=== PATIENT | male | born 1965 | race African-American/Black ===

== ENCOUNTER 2018-11-19 23:58 | Inpatient (IN) | payer MEDICARE, MEDICAID ==
[~2018-11-19] VITALS: Ht 182.9 cm; Wt 85.3 kg
[2018-11-19 23:58] VITALS: BP 126/75
[~2018-11-19 23:58] MED LIST: AMLODIPINE BES2.5 MG ORAL; ASPIRIN81 MG ORAL; BENAZEPRIL HCL20 MG ORAL; BENEZEPRIL PO; CARVEDILOL12.5 MG ORAL; CEPHALEXIN500 MG ORAL; FAMOTIDINE20 MG ORAL; METOPROLOL TART50 MG ORAL; NEPHROVITE1 TAB ORAL; PHENYTOIN SODI100 MG ORAL; PLAVIX75 MG ORAL; RENAGEL800 MG ORAL; SIMVASTATIN40 MG ORAL; VICODIN HP 10-1 EACH ORAL; amlodipine PO; aspirin PO; carvedilol PO; famotidine PO; metoprolol PO; nephro-vite PO; phenytoin PO; plavix PO; renagel PO; simvastatin PO
--- NOTE | 2018-11-19 23:58 | NUR ---
ED Nurse Note: BIAB RA 69 D/T HYPOGLYCEMIA ON SCENE 46. PER EMS PT WAS AT HOME AND [employer] CAME BY FOR A WELLNESS CHECK AND FOUND PT UNRESPONSIVE. PT HAS LEFT UPPER FISTULA. EMS ESTABLISHED LEFT EJ.
[2018-11-20] VITALS (52 sets, daily range): BP systolic 72–126; BP diastolic 27–87
--- NOTE | 2018-11-20 | NUR ---
ED Nurse Note: PT DIALYSIS SCHEDULE, IS T//S
--- NOTE | 2018-11-20 | NUR ---
Elijah haskins in EDM - 11/20/18 at 0033 by [facility] ED Nurse Note: PT DIALYSIS SCHEDULE, IS M/W/F
--- NOTE | 2018-11-20 00:20 | NUR ---
ED Nurse Note: SHRUTHI (SISTER) IS BEDSIDE STATES PT HAD DIALYSIS ON TUESDAY. Addendum: 11/20/18 at 0033 by PDELEON ED Nurse Note: SHRUTHI (SISTER) IS BEDSIDE STATES PT HAD DIALYSIS ON TUESDAY
[2018-11-20 00:25] LABS: HEMOGLOBIN 9.8 G/DL (14.2-18.0); MEAN CORPUSCULAR VOLUME 79 FL (80-99); PLATELET COUNT 97 K/UL (150-450); RED BLOOD COUNT 4.19 M/UL (4.70-6.10); RED CELL DISTRIBUTION WIDTH 20.3 % (11.6-14.8); WHITE BLOOD COUNT 9.8 K/UL (4.8-10.8)
--- NOTE | 2018-11-20 00:31 | NUR ---
ED Nurse Note: PT SENT TO CT
--- NOTE | 2018-11-20 00:31 | NUR ---
Sachi: patient's sister number [phone]
[2018-11-20 00:36] LABS: ANION GAP 19 mmol/L (5-15); BLOOD UREA NITROGEN 60 mg/dL (7-18); CALCIUM 10.8 MG/DL (8.5-10.1); CARBON DIOXIDE 23 MMOL/L (21-32); CHLORIDE 107 MMOL/L (98-107); CREATININE 9.7 MG/DL (0.55-1.30); POTASSIUM 5.5 MMOL/L (3.5-5.1); SODIUM 149 MMOL/L (136-145)
[2018-11-20 00:50] LABS: ALANINE AMINOTRANSFERASE 46 U/L (12-78); ALBUMIN 2.7 G/DL (3.4-5.0); ALBUMIN/GLOBULIN RATIO 0.5 (1.0-2.7); ALKALINE PHOSPHATASE 433 U/L (46-116); ASPARTATE AMINO TRANSFERASE 105 U/L (15-37); BILIRUBIN,TOTAL 5.9 MG/DL (0.2-1.0); CKMB 12.4 NG/ML (0.0-3.6); CREATINE KINASE 403 U/L (26-308)
[2018-11-20] MEDS ORDERED: Dextrose 10% 1,000 ML IV ONE (00:50)
[2018-11-20] MEDS ORDERED: Dextrose 10%/0.9% SOD CHL 1,000 ML IV SCH (01:00)
[2018-11-20 01:05] LABS: BILIRUBIN,DIRECT 3.9 MG/DL (0.0-0.3)
[2018-11-20] MEDS ORDERED: Piperacillin/Tazobactam 3.375 GM in NS 110 ML IVPB ONE (01:15)
[2018-11-20] MEDS ORDERED: Dextrose 10% 1,000 ML IV SCH ×3 (01:15→12:00)
--- NOTE | 2018-11-20 01:20 | Diagnostic Imaging Report ---
Indications: Altered level of consciousness, unresponsive, altered mental status Technique: Spiral acquisitions obtained through the brain. Angled axial and coronal 5 x 5 mm slices were reconstructed. Total dose length product 1414.79 mGycm. CTDI vol(s) 70.38 mGy. Dose reduction achieved using automated exposure control Comparison: None. Findings: Areas of encephalomalacia are seen in the left posterior parietal lobe and in the left anterior parietal lobe, consistent with old infarcts. No acute intracranial hemorrhage or edema, mass effect, nor midline shift. There is periventricular deep white matter low-attenuation, consistent with chronic microvascular ischemic change. Intact calvarium. There is right sphenoid sinus disease. The mastoids are clear. Impression: Chronic and age-related changes, as described Old infarcts on the left. Negative for acute intracranial bleed or mass effect This agrees with the preliminary interpretation provided overnight by [facility] teleradiology service. The CT scanner at [facility] is accredited by the [employer] and the scans are performed using protocols designed to limit radiation exposure to as low as reasonably achievable to attain images of sufficient resolution adequate for diagnostic evaluation.
[2018-11-20 01:32] LABS: INR 1.8 (0.9-1.1)
--- NOTE | 2018-11-20 01:33 | NUR ---
Face sheet, lab results and EKG faxed to [facility] after spoke with for possible transfer.
--- NOTE | 2018-11-20 01:45 | NUR ---
Spoke with Danilo at transfer center at [facility] to follow up if they received faxes, they did not get them, so all labs,EKG and face sheet refaxed as requested to [phone].
--- NOTE | 2018-11-20 01:47 | Emergency Room Report ---
History of Present Illness General Chief Complaint: Altered Mental Status Source: Family Member Present Illness HPI 53-year-old male presents ED for evaluation. Brought in by EMS from home. EMS states that [employer] was called for a wellness check as family was not able to reach the patient. Last well-known was yes afternoon. Was found unresponsive in his apartment. Accu-Chek critically low. Was given glucagon. Patient remains lethargic. Unable to provide any additional history at this time. Family states that patient has history of end-stage renal disease and gets dialysis Tuesday. Is compliant with his dialysis. Are not aware that patient is a diabetic. No reported alcohol or drug use. No other aggravating relieving factors. No other associated symptoms Allergies: Coded Allergies: COCAINE (Verified Allergy, Intermediate, Hives, 10/22/14) Patient History Past Medical History: HTN, CAD, CVA/TIA, renal disease, dialysis Past Surgical History: none Pertinent Family History: none Social History: Denies: smoking, alcohol use, drug use Immunizations: UTD Reviewed Nursing Documentation: PMH: Agreed; PSxH: Agreed Nursing Documentation-PMH Past Medical History: No History, Except For Hx Cardiac Problems: Yes Hx Hypertension: Yes Hx Pacemaker: No - CRF Hx COPD: No - CHF Hx Cancer: No Hx Gastrointestinal Problems: Yes Hx Dialysis: Yes - ,,Tuesday Hx Neurological Problems: Yes Hx Cerebrovascular Accident: Yes - 2008 with Left sided weakness Hx Seizures: Yes - 2008 Hx Dizziness: Yes Hx Weakness: Yes Hx Fatigue: Yes Review of Systems All Other Systems: limited Physical Exam Vital Signs Date Time Temp Pulse Resp B/P (MAP) Pulse Ox O2 Delivery O2 Flow Rate FiO2 11/19/18 23:57 98.2 89 18 147/62 (90) 99 Room Air Sp02 EP Interpretation: reviewed, normal General Appearance: mild distress, lethargic Head: normocephalic Eyes: bilateral eye normal inspection, bilateral eye PERRL ENT: normal ENT inspection Neck: normal inspection Respiratory: chest non-tender, lungs clear, crackles, speaking full sentences, other - midline surgical scar Cardiovascular #1: no edema, tachycardia, other - fistula LUE Gastrointestinal: normal bowel sounds, non tender, soft, non-distended, no guarding, no rebound Rectal: deferred Genitourinary: no CVA tenderness Musculoskeletal: normal inspection Neurologic: other - ams Psychiatric: other - ams Skin: other - see nursing skin notes Lymphatic: no adenopathy Procedures Critical Care Time Critical Care Time i. I feel this is a highly complex case requiring extensive working including EKG/Rhythm strip, Xray/CT/US, Blood/urine lab work, repeat exams while in ED, and administration of strong opiates/narcotics for pain control, admission to hospital or close patient follow up. Total time: 60 min bedside evaluation and treatment excludes procedures (EKG). Reason for critical care: hypoglycemia, tachypnea, NSTEMI Possible complications: hypotension, hypertension, TN, shock, arrhythmias, metabolic acidosis, end organ damage, respiratory failure. Interventions: labs, EKg, CXR, CT head, D50, D10W, Zosyn, consultation with cardiology at [facility]. heparin. Course: patient brought in found down with altered mental status. CT negative. History of end-stage renal disease. BUN/creatinine elevated. Troponin greater than 8. EKG shows sinus tachycardia. Chest x-ray shows congestion. Lactic acid elevated. ABG shows no significant acidosis or hypoxia. Discussed case with interventional cardiology at [facility] candidate for catheterization. Patient will be admitted to ICU here. Started on heparin. Zosyn given. discussed case with brother who is power of vocational adviser. Consultations: nursing staff, EMS, family Performed by: Dr Dewey Tolerated well condition = critical j. because of unstable vital signs this patient had a condition that could potentially threaten life or limb. I feel this is a critical patient who required my full attention while patient was considered critical. Total Critical Care Time excluding procedures was greater than 60 minutes Medical Decision Making Diagnostic Impression: Primary Impression: End stage renal failure on dialysis Additional Impressions: NSTEMI (non-ST elevated myocardial infarction) Severe sepsis Hypoglycemia Encephalopathy ER Course Hospital Course 53-year-old male presents ED with altered mental status. hypoglycemia. Found down for unknown period of time Differential diagnoses include: TN/unstable angina, contusion, muscle strain, PTX, rib fracture Clinical course Placed on stretcher. After initial history and physical repeat Accu-Chek shows continued hypoglycemia. Given D50. Started on D10. labs reviewed- no leukocytosis, Na 149, K 5.5, BUN 60, Cr 9.7, trop 8.507, lactic 6.3 EKG- sinus tachycardia no acute ischemic changes interpreted by me Chest x-ray- cardiomegaly. interstitial congestion CT head - no acute process broad spectrum antibiotics ordered Patient remains tachypneic during ED course. O2 sats okay. ABG ordered which shows no acidosis. PCO2 32.1 Discussed case with interventional cardiology at [facility]. Stated that patient does not meet criteria for emergent cath. Patient will be admitted here to ICU. Heparin bolus and heparin drip started I. I feel this is a highly complex case requiring extensive working including EKG/Rhythm strip, Xray/CT/US, Blood/urine lab work, repeat exams while in ED, and administration of strong opiates/narcotics for pain control, admission to hospital or close patient follow up. Diagnosis - NSTEMI, ESRD on dialysis, severe sepsis, hypoglycemia, encephalopathy admitted to ICU in critical condition Labs Test 11/20/18 00:10 11/20/18 00:54 White Blood Count 9.8 K/UL (4.8-10.8) Red Blood Count 4.19 M/UL (4.70-6.10) Hemoglobin 9.8 G/DL (14.2-18.0) Hematocrit 33.0 % (42.0-52.0) Mean Corpuscular Volume 79 FL (80-99) Mean Corpuscular Hemoglobin 23.3 PG (27.0-31.0) Mean Corpuscular Hemoglobin Concent 29.6 G/DL (32.0-36.0) Red Cell Distribution Width 20.3 % (11.6-14.8) Platelet Count 97 K/UL (150-450) Mean Platelet Volume 7.1 FL (6.5-10.1) Neutrophils (%) (Auto) % (45.0-75.0) Lymphocytes (%) (Auto) % (20.0-45.0) Monocytes (%) (Auto) % (1.0-10.0) Eosinophils (%) (Auto) % (0.0-3.0) Basophils (%) (Auto) % (0.0-2.0) Sodium Level 149 MMOL/L (136-145) Potassium Level 5.5 MMOL/L (3.5-5.1) Chloride Level 107 MMOL/L (98-107) Carbon Dioxide Level 23 MMOL/L (21-32) Anion Gap 19 mmol/L (5-15) Blood Urea Nitrogen 60 mg/dL (7-18) Creatinine 9.7 MG/DL (0.55-1.30) Estimat Glomerular Filtration Rate 6.9 mL/min (>60) Glucose Level 51 MG/DL (74-106) Lactic Acid Level 6.30 mmol/L (0.4-2.0) Calcium Level 10.8 MG/DL (8.5-10.1) Total Bilirubin 5.9 MG/DL (0.2-1.0) Direct Bilirubin 3.9 MG/DL (0.0-0.3) Aspartate Amino Transf (AST/SGOT) 105 U/L (15-37) Alanine Aminotransferase (ALT/SGPT) 46 U/L (12-78) Alkaline Phosphatase 433 U/L (46-116) Total Creatine Kinase 403 U/L (26-308) Creatine Kinase MB 12.4 NG/ML (0.0-3.6) Creatine Kinase MB Relative Index 3.0 Troponin I 8.507 ng/mL (0.000-0.056) Pro-B-Type Natriuretic Peptide > 51018 pg/mL (0-125) Total Protein 8.0 G/DL (6.4-8.2) Albumin 2.7 G/DL (3.4-5.0) Globulin 5.3 g/dL Albumin/Globulin Ratio 0.5 (1.0-2.7) Arterial Blood pH 7.390 (7.350-7.450) Arterial Blood Partial Pressure CO2 32.1 mmHg (35.0-45.0) Arterial Blood Partial Pressure O2 82.6 mmHg (75.0-100.0) Arterial Blood HCO3 19.0 mmol/L (22.0-26.0) Arterial Blood Oxygen Saturation 94.7 % (95-100) Arterial Blood Base Excess -5.3 (-2-2) Dirk Test Positive EKG Diagnostic Results Rate: tachycardiac Rhythm: NSR ST Segments: no acute changes Rhythm Strip Diag. Results EP Interpretation: yes Rhythm: NSR, no PVC's, no ectopy Chest X-Ray Diagnostic Results Chest X-Ray Diagnostic Results : Chest X-Ray Ordered: Yes # of Views/Limited/Complete: 1 View Indication: Other EP Interpretation: Yes Interpretation: no pneumothorax, other - cardiomegaly. interstitial congestion Impression: Other - chf Electronically Signed by: Electronically signed by Bonifacio Dewey MD CT/MRI/US Diagnostic Results CT/MRI/US Diagnostic Results : Imaging Test Ordered: CT Head Impression no acute process Last Vital Signs Date Time Temp Pulse Resp B/P (MAP) Pulse Ox O2 Delivery O2 Flow Rate FiO2 11/19/18 23:58 135 20 Room Air 11/19/18 23:58 99.3 126/75 96 Status: improved Disposition: ADMITTED INPATIENT Condition: Critical Referrals: NOT CHOSEN IPA/,REFERRING (PCP) Bonifacio Dewey MD Nov 20, 2018 01:47
--- NOTE | 2018-11-20 02:00 | NUR ---
ED Nurse Note: ermd aware of pt tachypnic status 39 RR
[2018-11-20] MEDS ORDERED: NAPROXEN375 M2 ORAL (03:04)
[2018-11-20] MEDS ORDERED: METOPROLOL SUCC50 MG ORAL (03:04)
--- NOTE | 2018-11-20 03:04 | NUR ---
ED Nurse Note: brother Anival Jefferson at bedside. ermd speaking to brother
[2018-11-20] MEDS ORDERED: Heparin 25,000u/D5W 500ml 500 ML IV SCH ×2 (03:30→05:15)
[2018-11-20] MEDS ORDERED: Heparin 5000 units/ml inj IV ONE (03:30)
--- NOTE | 2018-11-20 03:57 | NUR ---
ED Nurse Note: telephone report given to NAI WOLFF
--- NOTE | 2018-11-20 04:00 | NUR ---
Received a call from [facility] transfer center- declines the transfer (states patient does not need immediate cardiac catheterization, therefore there is no beds available at [facility] at this time). spoke with (covering for Ofelia who is mission coordinator panel)-admit patient to [facility], however patient placed on transfer waiting list at [facility].
--- NOTE | 2018-11-20 04:10 | NUR ---
ED Nurse Note: pt brought up on chiropractor sole practitioner with ginette emt and jess rn. pt is aox1, vitals signs documented in interventions. all belongings with pt.
--- NOTE | 2018-11-20 04:20 | NUR ---
NURSE NOTES: Admitted 53 year old male patient from ED. Endorsement received from NAI Keita. Patient opens eyes but does not track. Patient obtunded. On 2 LPM nasal cannula. Tachycardic and tachypneic. With left EJ g 20, right forearm g18. Ongoing Heparin 11units/kg/hr, D10W 50ml/hr. Left upper arm fistula. Bed bath given. Patient noted to have old surgical scar at abdomen and chest, otherwise skin is intact. Head of bed elevated. Call light within reach. Bed locked and in low position
--- NOTE | 2018-11-20 04:29 | NUR ---
NURSE NOTES: Called and spoke with retail wireless sales representative on MD Maribel potts in regards to admission orders. was told that MD will be notified, awaiting call back Addendum: 11/20/18 at 0435 by AMBROCIO DÍAZ RN Will continue heparin gtt from ER at this time until admission orders are received but to patient elevated troponin and coags.
--- NOTE | 2018-11-20 04:47 | NUR ---
NURSE NOTES: Patient blood sugar noted to be critically low at this time. Stat glucose ordered and d50
--- NOTE | 2018-11-20 05:00 | NUR ---
NURSE NOTES: Called and left message for MD Gilbert at this time . 2nd attempt.
[2018-11-20] MEDS ORDERED: Morphine Sulfate 2mg/ml Inj(IV/IM USE ONLY) IVP PRN (05:15)
[2018-11-20] MEDS ORDERED: Albuterol/Ipratropium 3ml neb HHN PRN (05:15)
--- NOTE | 2018-11-20 05:30 | NUR ---
NURSE NOTES: Dr. Mar oncall for Dr. Gilbert returned the call. With orders made, read back and verified by
--- NOTE | 2018-11-20 05:40 | NUR ---
NURSE NOTES: Called and left message for MD Smith at this time. Ordered by MD Mar to consult with him for critical care management. Latest ABG left in message. Awaiting call back.
--- NOTE | 2018-11-20 06:15 | NUR ---
NURSE NOTES: Called and left message for MD Smith in regards to new patient admission and MD Mar wanting us to consult with lakshmi. Bipap was ordered by Isabela but no setting were given. Sinus tach Hr 140, BP 81/51, No central line or pressors at this time.
--- NOTE | 2018-11-20 06:17 | NUR ---
NURSE NOTES: NGT inserted a the right nare, with audible sounds when air is introduced. veterinary surgery technician at bedside to confirm placement
--- NOTE | 2018-11-20 06:31 | NUR ---
NURSE NOTES: ER MD came to see the patient and call Isabela. order to intubate patient. Rt Called to the bedside at this time.
--- NOTE | 2018-11-20 06:40 | NUR ---
CODE BLUE: See Code sheet which remains on paper. Addendum: 11/20/18 at 0751 by AMBROCIO DÍAZ RN Called and notified sister about brothers condition change at this time Sachi: [phone]
--- NOTE | 2018-11-20 06:40 | NUR ---
NURSE NOTES: Patient intubated at this time by ER MD Pillai
--- NOTE | 2018-11-20 06:45 | NUR ---
NURSE NOTES: Called patient sister at this time, No answer
--- NOTE | 2018-11-20 06:49 | NUR ---
NURSE NOTES: R femoral TLC inserted by ROSARIO ROLDAN
--- NOTE | 2018-11-20 07:00 | NUR ---
RESPIRATORY NOTE: Intubated patient with a 7.5 ETT at 22cm at the lip. Placed on ACVC RR 15, VT 500, FIO2 100%, PEEP 5. Breath sounds reveal rhonchi bilaterally. Suction thin ferguson secretions through ETT Q2 and PRN. Alarms and on and audible. Vent plugged into red outlet. Will continue to monitor through the day.
--- NOTE | 2018-11-20 07:19 | Diagnostic Imaging Report ---
Indication: Post nasogastric tube placement Technique: Supine view of the abdomen Comparison: none Findings: There is a nasogastric tube in place, tip of which projects barely in the gastric fundus, proximal port at or above the gastroesophageal junction. A large calcification is seen in the left upper quadrant, likely represents old inflammatory disease. A and aortic valve prosthesis is noted. Vascular stents are seen in the left upper extremity Impression: Somewhat high position of nasogastric tube. Advancement recommended. This was discussed by phone with ICU nurse at the time of interpretation Other findings as noted
--- NOTE | 2018-11-20 07:30 | NUR ---
NURSE NOTES: Received report from NAI Steiner. Patient is lethargic and not responsive to verbal and tactile stimuli S/P coded and intubation. ETT 7.5/23 at lip line. Vent setting AC 15, TV 500, Peep 5 and FiO2 100%. NPO. NGT on right nare, still awaiting xray results for placement. Right femoral TLC line intact and running with heparin drip running @12unit/kg/hr, D10W @50ml/hr and levophed @30mcg/min. Will continue to monitor closely and continue plan of care.
--- NOTE | 2018-11-20 07:30 | NUR ---
HAND-OFF: Gabriel hayes at bedside for ETT placement confirmation. Spoke with Pharmacist Renée regarding the heparin drip was started at 0600H and there is another Heparin drip due for 0715H. As per her, she will send the heparin label and to continue same dose of 12 units/kg/min and next PTT will still be at 12noon. Bedside report given to Andrei
--- NOTE | 2018-11-20 07:30 | NUR ---
HAND-OFF: data collection technician at bedside for ETT placement confirmation. Bedside report given to
--- NOTE | 2018-11-20 07:45 | Emergency Room Report ---
History of Present Illness General Chief Complaint: Altered Mental Status Source: Family Member, Medical Record Present Illness Allergies: Coded Allergies: COCAINE (Verified Allergy, Intermediate, Hives, 10/22/14) Nursing Documentation-[facility] Past Medical History: No History, Except For Hx Cardiac Problems: Yes Hx Hypertension: Yes Hx Pacemaker: No - CRF Hx COPD: No - CHF Hx Cancer: No Hx Gastrointestinal Problems: Yes Hx Dialysis: Yes - ,,Tuesday Hx Neurological Problems: Yes Hx Cerebrovascular Accident: Yes - 2008 with Left sided weakness Hx Seizures: Yes - 2008 Hx Dizziness: Yes Hx Weakness: Yes Hx Fatigue: Yes Physical Exam Vital Signs Date Time Temp Pulse Resp B/P (MAP) Pulse Ox O2 Delivery O2 Flow Rate FiO2 11/19/18 23:57 98.2 89 18 147/62 (90) 99 Room Air 11/20/18 01:30 2.0 11/20/18 07:03 100 Procedures Critical Care Time Critical Care Time i. I feel this is a highly complex case requiring extensive working including EKG/Rhythm strip, Xray/CT/US, Blood/urine lab work, repeat exams while in ED, and administration of strong opiates/narcotics for pain control, admission to hospital or close patient follow up. Total time: 30 min bedside evaluation and treatment excludes procedures (EKG). Reason for critical care: Tachypnea, hypotension Possible complications: hypotension, hypertension, MT, shock, arrhythmias, metabolic acidosis, end organ damage, respiratory failure. Interventions: Intubation, CODE BLUE, amiodarone, central line, Levophed Course: I initially evaluated this patient and admitted to ICU. On reassessment of repeat ABG patient's tachypnea appears to be getting worse. Patient diaphoretic. I made decision to intubate patient. After intubation patient lost pulse. code blue called. Chest compressions and epinephrine given and patient regained pulses. Patient subsequently developed ventricular tachycardia. Resolved after amiodarone. Central line placed. Pressors started Consultations: nursing staff, EMS, family Performed by: Dr Dewey Tolerated well condition = critical j. because of unstable vital signs this patient had a condition that could potentially threaten life or limb. I feel this is a critical patient who required my full attention while patient was considered critical. Total Critical Care Time excluding procedures was greater than 35 minutes Central Line Central Line : Consent: Emergent Central Line Lumen: triple Maximal Sterile Barrier Tech: yes cap, yes mask, yes sterile gown, yes sterile gloves, yes large sterile sheet, yes hand hygiene, yes chlorhexidine prep Central Line Postion: femoral (R) Anesthesia: Lidocaine Complications: none Central Line Post Position: sutured, good blood return Attempts: One Patient Tolerated: Well Complications: None CPR/Code Blue CPR/Code Blue Narrative CODE BLUE sheet for full narrative Intubation Intubation : Consent: Verbal Intubation Method: orotracheal Tube Size (cm): 7.5 Medications: Etomidate, Rocuronium Breath Sounds after Intubation: equal Intubation Complications: no complications Post Intubation Xray: Yes Attempts: One Patient Tolerated: Well Complications: None Medical Decision Making Diagnostic Impression: Primary Impression: End stage renal failure on dialysis Additional Impressions: Hypoglycemia Severe sepsis Encephalopathy NSTEMI (non-ST elevated myocardial infarction) ER Course I admitted this patient to the ICU tonight. I reevaluated patient's repeat ABG which showed worsening of her PCO2 and tachypnea. When he went to evaluate the patient in the ICU patient was hypoxic and hypotensive. We quickly intubated the patient. Shortly after patient did lose pulse. CODE BLUE was called compressions were started. Medications were given and patient regained pulses. Patient did have one run of ventricular tachycardia in which we gave amiodarone which then resolved. Central line was placed and Levophed was started. care will be transitioned back to admitting team Last Vital Signs Date Time Temp Pulse Resp B/P (MAP) Pulse Ox O2 Delivery O2 Flow Rate FiO2 11/20/18 07:28 91/52 11/20/18 07:05 147 21 100 11/20/18 07:03 100 Mechanical Ventilator 11/20/18 06:00 2.0 11/20/18 04:10 98.7 Status: improved Disposition: ADMITTED INPATIENT Condition: Critical Referrals: NOT CHOSEN IPA/,REFERRING (PCP) Bonifacio Dewey MD Nov 20, 2018 07:45
[2018-11-20] MEDS: Heparin 25,000u/D5W 500ml 500 ML IV SCH (07:52)
[2018-11-20] MEDS ORDERED: Piperacillin/Tazobactam 2.25 GM in D5W 55 ML IVPB SCH (08:00)
--- NOTE | 2018-11-20 08:10 | Diagnostic Imaging Report ---
Indication: Post intubation Technique: One view of the chest Comparison: 7 hours earlier Findings: Interim endotracheal intubation, endotracheal tube tip projecting approximately 6 cm above the kenn. Nasogastric tube tip projects just inside the stomach, proximal port at or above the gastroesophageal junction. There are overlying defibrillator paddles. The heart is enlarged. The right hemidiaphragm is mildly elevated. There is some atelectasis in the right perihilar region. Lungs and pleural spaces are otherwise clear. There is an aortic prosthesis as well as left upper extremity and central venous stents Impression: Satisfactory endotracheal intubation High position of nasogastric tube. ICU nurse was previously notified of this Right perihilar atelectasis Cardiomegaly
[2018-11-20] MEDS ORDERED: Vancomycin 1.5gm/D5W 275ml IVPB ONE ×2 (09:00)
[2018-11-20] MEDS: Aspirin Baby 81mg NG SCH (09:00)
[2018-11-20] MEDS: Pantoprazole Inj IVP SCH (09:06)
--- NOTE | 2018-11-20 09:15 | NUR ---
NURSE NOTES: Informed Dr. Smith post intubation ABG results and new vent setting order carried out.
--- NOTE | 2018-11-20 09:37 | Consultation ---
History of Present Illness General Date patient seen: Nov 20, 2018 Time patient seen: 09:36 Chief Complaint: Altered Mental Status Present Illness HPI Patient was admitted for AMS intubated in ER, Troponin elevated and rising, no 2 pressors, hx of ESRD on dialysis. He has a history significant for endocarditis s/p AVR s/p TAVR, ESRD on HD t//tue, seizure disorder, HTN Allergies: Coded Allergies: COCAINE (Verified Allergy, Intermediate, Hives, 10/22/14) Medication History Scheduled Aspirin* (Aspirin*), 81 MG ORAL DAILY, (Reported) Benazepril Hcl* (Benazepril Hcl*), 20 MG ORAL DAILY, (Reported) Carvedilol* (Carvedilol*), 12.5 MG ORAL BID, (Reported) Cephalexin* (Keflex*), 500 MG ORAL EVERY 12 HOURS Clopidogrel Bisulfate* (Plavix*), 75 MG ORAL DAILY, (Reported) Famotidine (Famotidine), 20 MG ORAL DAILY, (Reported) Metoprolol Succinate* (Metoprolol Succinate*), 50 MG ORAL DAILY, (Reported) Naproxen* (Naproxen*), 375 MG ORAL TWICE A DAY, (Reported) Phenytoin Sodium Extended* (Phenytoin Sodium Extended*), 300 MG ORAL DAILY, ( Reported) Sevelamer Hcl (Renagel), 800 MG ORAL THREE TIMES A DAY, (Reported) Simvastatin (Zocor), 40 MG ORAL BEDTIME, (Reported) Vitamin B Cmplx/Vit C/Folic AC (Nephro-Divine Tablet), 1 TAB ORAL DAILY, (Reported ) [phenytoin], 100 MG PO . 2 TABS AM/1TAB PM, (Reported) Scheduled PRN Hydrocodone/Acetaminophen 10-300 Mg Tablet (Vicodin Hp 10-300 Mg Tablet), 1 TAB ORAL Q4H PRN for For Pain, (Reported) Patient History Healthcare decision maker Resuscitation status Full Code Advanced Directive on File Review of Systems Constitutional: Reports: see HPI Eye: Reports: no symptoms ENT: Reports: no symptoms Respiratory: Reports: no symptoms Cardiovascular: Reports: no symptoms Gastrointestinal: Reports: no symptoms Genitourinary: Reports: no symptoms Musculoskeletal: Reports: no symptoms Skin: Reports: no symptoms Psychiatric: Reports: no symptoms Neurological: Reports: no symptoms Endocrine: Reports: no symptoms Hematologic/Lymphatic: Reports: no symptoms Physical Exam General Appearance: mild distress Lines, tubes and drains: peripheral, central line HEENT: normocephalic, atraumatic Neck: non-tender, normal alignment Respiratory/Chest: crackles/rales, rhonchi - bilaterally Cardiovascular/Chest: normal peripheral pulses, tachycardia Abdomen: normal bowel sounds, non tender, soft, no organomegaly Extremities: normal range of motion Skin Exam: normal pigmentation, warm/dry, cyanotic 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, no motor/sensory deficits Last 24 Hour Vital Signs Date Time Temp Pulse Resp B/P (MAP) Pulse Ox O2 Delivery O2 Flow Rate FiO2 11/20/18 09:25 135 27 80 11/20/18 08:14 91/52 11/20/18 07:28 11/20/18 07:05 147 21 100 11/20/18 07:03 154 20 100 Mechanical Ventilator 100 11/20/18 07:00 135 45 98/41 96 Nasal Cannula 2.0 11/20/18 06:00 139 45 81/51 96 Nasal Cannula 2.0 11/20/18 05:32 Nasal Cannula 2.0 11/20/18 05:17 2.0 11/20/18 05:00 140 45 100/53 96 Nasal Cannula 2.0 11/20/18 04:10 141 48 99/51 95 Nasal Cannula 2.0 11/20/18 04:10 98.7 141 48 99/51 95 Nasal Cannula 2.0 11/20/18 04:00 98.4 141 45 126/78 97 Nasal Cannula 2.0 11/20/18 02:34 98.7 138 39 113/79 100 Nasal Cannula 2.0 11/20/18 01:30 99.9 138 39 121/75 98 Nasal Cannula 2.0 11/19/18 23:58 135 20 Room Air 11/19/18 23:58 99.3 135 30 126/75 96 Room Air 11/19/18 23:57 98.2 89 18 147/62 (90) 99 Room Air Intake and Output 11/19/18 11/20/18 19:00 07:00 Intake Total 270 ml Output Total 0 ml Balance 270 ml Intake IV Total 270 ml Output Urine Total 0 ml Laboratory Tests Test 11/20/18 00:10 11/20/18 00:54 11/20/18 01:45 11/20/18 04:53 White Blood Count 9.8 K/UL (4.8-10.8) Red Blood Count 4.19 M/UL (4.70-6.10) L Hemoglobin 9.8 G/DL (14.2-18.0) L Hematocrit 33.0 % (42.0-52.0) L Mean Corpuscular Volume 79 FL (80-99) L Mean Corpuscular Hemoglobin 23.3 PG (27.0-31.0) L Mean Corpuscular Hemoglobin Concent 29.6 G/DL (32.0-36.0) L Red Cell Distribution Width 20.3 % (11.6-14.8) H Platelet Count 97 K/UL (150-450) L Mean Platelet Volume 7.1 FL (6.5-10.1) Neutrophils (%) (Auto) % (45.0-75.0) Lymphocytes (%) (Auto) % (20.0-45.0) Monocytes (%) (Auto) % (1.0-10.0) Eosinophils (%) (Auto) % (0.0-3.0) Basophils (%) (Auto) % (0.0-2.0) Prothrombin Time 18.8 SEC (9.30-11.50) H Prothromb Time International Ratio 1.8 (0.9-1.1) H Activated Partial Thromboplast Time 40 SEC (23-33) H Sodium Level 149 MMOL/L (136-145) H Potassium Level 5.5 MMOL/L (3.5-5.1) H Chloride Level 107 MMOL/L (98-107) Carbon Dioxide Level 23 MMOL/L (21-32) Anion Gap 19 mmol/L (5-15) H Blood Urea Nitrogen 60 mg/dL (7-18) H Creatinine 9.7 MG/DL (0.55-1.30) H Estimat Glomerular Filtration Rate 6.9 mL/min (>60) Glucose Level 51 MG/DL (74-106) L 160 MG/DL (74-106) #H Lactic Acid Level 6.30 mmol/L (0.4-2.0) H 7.00 mmol/L (0.66-2.22) H Calcium Level 10.8 MG/DL (8.5-10.1) H Total Bilirubin 5.9 MG/DL (0.2-1.0) H Direct Bilirubin 3.9 MG/DL (0.0-0.3) H Aspartate Amino Transf (AST/SGOT) 105 U/L (15-37) H Alanine Aminotransferase (ALT/SGPT) 46 U/L (12-78) Alkaline Phosphatase 433 U/L (46-116) H Total Creatine Kinase 403 U/L (26-308) H Creatine Kinase MB 12.4 NG/ML (0.0-3.6) H Creatine Kinase MB Relative Index 3.0 Troponin I 8.507 ng/mL (0.000-0.056) Pro-B-Type Natriuretic Peptide > 47143 pg/mL (0-125) H Total Protein 8.0 G/DL (6.4-8.2) Albumin 2.7 G/DL (3.4-5.0) L Globulin 5.3 g/dL Albumin/Globulin Ratio 0.5 (1.0-2.7) L Arterial Blood pH 7.390 (7.350-7.450) Arterial Blood Partial Pressure CO2 32.1 mmHg (35.0-45.0) L Arterial Blood Partial Pressure O2 82.6 mmHg (75.0-100.0) Arterial Blood HCO3 19.0 mmol/L (22.0-26.0) L Arterial Blood Oxygen Saturation 94.7 % (95-100) L Arterial Blood Base Excess -5.3 (-2-2) L Dirk Test Positive Test 11/20/18 05:27 11/20/18 08:15 11/20/18 08:35 Arterial Blood pH 7.400 (7.350-7.450) 7.118 (7.350-7.450) Arterial Blood Partial Pressure CO2 25.4 mmHg (35.0-45.0) L 51.0 mmHg (35.0-45.0) H Arterial Blood Partial Pressure O2 71.7 mmHg (75.0-100.0) L 381.7 mmHg (75.0-100.0) H Arterial Blood HCO3 15.4 mmol/L (22.0-26.0) *L 16.1 mmol/L (22.0-26.0) *L Arterial Blood Oxygen Saturation 92.1 % (95-100) L 99.6 % (95-100) Arterial Blood Base Excess -8.3 (-2-2) L -12.7 (-2-2) *L Dirk Test Positive Positive Activated Partial Thromboplast Time Pending Lactic Acid Level 10.60 mmol/L (0.4-2.0) H Ammonia 10 umol/L (11-32) L Troponin I Pending Thyroid Stimulating Hormone (TSH) 2.277 uiU/mL (0.358-3.740) Height (Feet): 6 Height (Inches): 0.00 Weight (Pounds): 193 Medications Current Medications Medications (Trade) Dose Ordered Sig/Jewel Route PRN Reason Start Time Stop Time Status Last Admin Dose Admin Albuterol/ Ipratropium (Albuterol/ Ipratropium) 3 ml Q6H PRN HHN Shortness of Breath 11/20/18 05:15 11/25/18 05:14 Aspirin (ASA) 81 mg DAILY NG 11/20/18 09:00 12/20/18 08:59 Atorvastatin Calcium (Lipitor) 80 mg BEDTIME ORAL 11/20/18 21:00 12/20/18 20:59 Dextrose 1,000 ml @ 50 mls/hr Q20H IV 11/20/18 05:15 12/20/18 05:14 11/20/18 05:46 Heparin Sodium/ Dextrose 500 ml @ 21.01 mls/ hr ADJUST PER PROTOCOL IV 11/20/18 07:15 12/20/18 05:14 11/20/18 07:52 Morphine Sulfate (Morphine Sulfate) 1 mg Q3H PRN IVP For Pain 11/20/18 05:15 11/27/18 05:14 Norepinephrine Bitartrate 4 mg/ Dextrose 250 ml @ 0 mls/hr Q24H IV 11/20/18 07:30 12/20/18 07:29 11/20/18 08:14 Norepinephrine Bitartrate 8 mg/ Dextrose 250 ml @ 0 mls/hr Q24H IV 11/20/18 10:00 12/20/18 09:59 Pantoprazole (Protonix) 40 mg DAILY IVP 11/20/18 09:00 12/20/18 08:59 11/20/18 09:06 Piperacillin Sod/ Tazobactam Sod 2.25 gm/Dextrose 55 ml @ 110 mls/hr Q8H IVPB 11/20/18 10:00 11/27/18 09:59 Vancomycin HCl (Vanco rx to dose) 1 ea DAILY PRN MISC Per rx protocol 11/20/18 05:15 12/20/18 05:14 Vancomycin HCl 1.5 gm/Dextrose 275 ml @ 137.5 mls/ hr ONCE ONCE IVPB 11/20/18 09:00 11/20/18 10:59 11/20/18 09:07 Assessment/Plan Status: stable Assessment/Plan: Assessment/Plan Problem List: (1) Hyperkalemia (2) fluid overload (3) End stage renal disease on dialysis (4) Congestive heart failure (5) Encephalopathy (6) Severe sepsis (7) NSTEMI (non-ST elevated myocardial infarction) (8) hx of TAVR (9) hyperkalemia PLAN: Echocardiogram with normal LV function Wean pressors Start midodrine to wean levophed IV Abx empiric, follow cultures Trend troponin Will need cardiac cath when stable to evaluate coronary anatomy Monitor on telemetry for arrhythmias HD per nephrology Critical care 35 minutes Prognosis guarded/poor Leo Knight MD Nov 20, 2018 09:37
--- NOTE | 2018-11-20 10:56 | NUR ---
Social Work This SW met with patient who is currently sedated, intubated. This Sw spoke with patients brother, Anival Jefferson ([phone]) who explains he is the POA for patient (this Sw requested to bring in POA documents for chart; brother explains he plans to bring in when he visits, will give to the nurse). Brother explains patient lives alone, was independent overall, has a walker but has not been using it. Brother explains he is patients SS caregiver and coming into the home four days per week, along with other family (three aunts, sister in law, Contreras Salamanca) is checking in on him. Patient was going to Dialysis in [place] (unable to recall the name) [id number] Patient typically can only ambulate short distances due to shortness of breath (does not have home 02). Patient has a history of smoking cigarettes (one pack, every three days) and quit using Cocaine 15 years ago. Brother denied any other mental health concerns. Pending current progress; brother requesting full code/full treatment at this time, will be visiting patient regularly.
--- NOTE | 2018-11-20 11:00 | NUR ---
NURSE NOTES: Informed Dr. Knight of troponin level. new order carried out.
[2018-11-20] MEDS: Piperacillin/Tazobactam 2.25 GM in D5W 55 ML IVPB SCH ×2 (11:14→17:05)
--- NOTE | 2018-11-20 11:18 | NUR ---
RADIOLOGY DEPT., ABDOMEN X-RAY FOR RE-POSITIONED PERFORMED.-P.DYE
--- NOTE | 2018-11-20 11:27 | Consultation ---
History of Present Illness General Chief Complaint: Altered Mental Status Present Illness HPI This is a 53 year old male with past medical history significant for endocarditis s/p AVR s/p TAVR, ESRD on HD t//tue, seizure disorder, HTN presents with AMS after being founf unresponsive in his home. He was to be markedly hypoglycemic by the EMS. on presentation he was found to be altered and tachypneic. Labs notable for hyperglycemia, lactic acidosis and elevated troponin He was admitted to MICU for further management. shortly after arrival in the unit he briefly coded and was immediately resuscitated and intubated. Allergies: Coded Allergies: COCAINE (Verified Allergy, Intermediate, Hives, 10/22/14) Medication History Scheduled Aspirin* (Aspirin*), 81 MG ORAL DAILY, (Reported) Benazepril Hcl* (Benazepril Hcl*), 20 MG ORAL DAILY, (Reported) Carvedilol* (Carvedilol*), 12.5 MG ORAL BID, (Reported) Cephalexin* (Keflex*), 500 MG ORAL EVERY 12 HOURS Clopidogrel Bisulfate* (Plavix*), 75 MG ORAL DAILY, (Reported) Famotidine (Famotidine), 20 MG ORAL DAILY, (Reported) Metoprolol Succinate* (Metoprolol Succinate*), 50 MG ORAL DAILY, (Reported) Naproxen* (Naproxen*), 375 MG ORAL TWICE A DAY, (Reported) Phenytoin Sodium Extended* (Phenytoin Sodium Extended*), 300 MG ORAL DAILY, ( Reported) Sevelamer Hcl (Renagel), 800 MG ORAL THREE TIMES A DAY, (Reported) Simvastatin (Zocor), 40 MG ORAL BEDTIME, (Reported) Vitamin B Cmplx/Vit C/Folic AC (Nephro-Divine Tablet), 1 TAB ORAL DAILY, (Reported ) [phenytoin], 100 MG PO . 2 TABS AM/1TAB PM, (Reported) Scheduled PRN Hydrocodone/Acetaminophen 10-300 Mg Tablet (Vicodin Hp 10-300 Mg Tablet), 1 TAB ORAL Q4H PRN for For Pain, (Reported) Patient History Healthcare decision maker Resuscitation status Full Code Advanced Directive on File Review of Systems ROS Narrative Unable to obtain as patient is intubated Physical Exam General Appearance: other - intubated HEENT: normocephalic Respiratory/Chest: other - mechanical breath sounds Cardiovascular/Chest: normal rate, regular rhythm Abdomen: normal bowel sounds, non tender Last 24 Hour Vital Signs Date Time Temp Pulse Resp B/P (MAP) Pulse Ox O2 Delivery O2 Flow Rate FiO2 11/20/18 11:00 131 30 60 11/20/18 09:49 101/48 11/20/18 09:25 135 27 80 11/20/18 08:14 91/52 11/20/18 08:00 Endotracheal Tube 11/20/18 07:28 91/52 11/20/18 07:05 147 21 100 11/20/18 07:03 154 20 100 Mechanical Ventilator 100 11/20/18 07:00 135 45 98/41 96 Nasal Cannula 2.0 11/20/18 06:00 139 45 81/51 96 Nasal Cannula 2.0 11/20/18 05:32 Nasal Cannula 2.0 11/20/18 05:17 2.0 11/20/18 05:00 140 45 100/53 96 Nasal Cannula 2.0 11/20/18 04:10 141 48 99/51 95 Nasal Cannula 2.0 11/20/18 04:10 98.7 141 48 99/51 95 Nasal Cannula 2.0 11/20/18 04:00 98.4 141 45 126/78 97 Nasal Cannula 2.0 11/20/18 02:34 98.7 138 39 113/79 100 Nasal Cannula 2.0 11/20/18 01:30 99.9 138 39 121/75 98 Nasal Cannula 2.0 11/19/18 23:58 135 20 Room Air 11/19/18 23:58 99.3 135 30 126/75 96 Room Air 11/19/18 23:57 98.2 89 18 147/62 (90) 99 Room Air Intake and Output 11/19/18 11/20/18 19:00 07:00 Intake Total 270 ml Output Total 0 ml Balance 270 ml Intake IV Total 270 ml Output Urine Total 0 ml Laboratory Tests Test 11/20/18 00:10 11/20/18 00:54 11/20/18 01:45 11/20/18 04:53 White Blood Count 9.8 K/UL (4.8-10.8) Red Blood Count 4.19 M/UL (4.70-6.10) L Hemoglobin 9.8 G/DL (14.2-18.0) L Hematocrit 33.0 % (42.0-52.0) L Mean Corpuscular Volume 79 FL (80-99) L Mean Corpuscular Hemoglobin 23.3 PG (27.0-31.0) L Mean Corpuscular Hemoglobin Concent 29.6 G/DL (32.0-36.0) L Red Cell Distribution Width 20.3 % (11.6-14.8) H Platelet Count 97 K/UL (150-450) L Mean Platelet Volume 7.1 FL (6.5-10.1) Neutrophils (%) (Auto) % (45.0-75.0) Lymphocytes (%) (Auto) % (20.0-45.0) Monocytes (%) (Auto) % (1.0-10.0) Eosinophils (%) (Auto) % (0.0-3.0) Basophils (%) (Auto) % (0.0-2.0) Prothrombin Time 18.8 SEC (9.30-11.50) H Prothromb Time International Ratio 1.8 (0.9-1.1) H Activated Partial Thromboplast Time 40 SEC (23-33) H Sodium Level 149 MMOL/L (136-145) H Potassium Level 5.5 MMOL/L (3.5-5.1) H Chloride Level 107 MMOL/L (98-107) Carbon Dioxide Level 23 MMOL/L (21-32) Anion Gap 19 mmol/L (5-15) H Blood Urea Nitrogen 60 mg/dL (7-18) H Creatinine 9.7 MG/DL (0.55-1.30) H Estimat Glomerular Filtration Rate 6.9 mL/min (>60) Glucose Level 51 MG/DL (74-106) L 160 MG/DL (74-106) #H Lactic Acid Level 6.30 mmol/L (0.4-2.0) H 7.00 mmol/L (0.66-2.22) H Calcium Level 10.8 MG/DL (8.5-10.1) H Total Bilirubin 5.9 MG/DL (0.2-1.0) H Direct Bilirubin 3.9 MG/DL (0.0-0.3) H Aspartate Amino Transf (AST/SGOT) 105 U/L (15-37) H Alanine Aminotransferase (ALT/SGPT) 46 U/L (12-78) Alkaline Phosphatase 433 U/L (46-116) H Total Creatine Kinase 403 U/L (26-308) H Creatine Kinase MB 12.4 NG/ML (0.0-3.6) H Creatine Kinase MB Relative Index 3.0 Troponin I 8.507 ng/mL (0.000-0.056) Pro-B-Type Natriuretic Peptide > 18609 pg/mL (0-125) H Total Protein 8.0 G/DL (6.4-8.2) Albumin 2.7 G/DL (3.4-5.0) L Globulin 5.3 g/dL Albumin/Globulin Ratio 0.5 (1.0-2.7) L Arterial Blood pH 7.390 (7.350-7.450) Arterial Blood Partial Pressure CO2 32.1 mmHg (35.0-45.0) L Arterial Blood Partial Pressure O2 82.6 mmHg (75.0-100.0) Arterial Blood HCO3 19.0 mmol/L (22.0-26.0) L Arterial Blood Oxygen Saturation 94.7 % (95-100) L Arterial Blood Base Excess -5.3 (-2-2) L Dirk Test Positive Test 11/20/18 05:27 11/20/18 08:15 11/20/18 08:35 Arterial Blood pH 7.400 (7.350-7.450) 7.118 (7.350-7.450) Arterial Blood Partial Pressure CO2 25.4 mmHg (35.0-45.0) L 51.0 mmHg (35.0-45.0) H Arterial Blood Partial Pressure O2 71.7 mmHg (75.0-100.0) L 381.7 mmHg (75.0-100.0) H Arterial Blood HCO3 15.4 mmol/L (22.0-26.0) *L 16.1 mmol/L (22.0-26.0) *L Arterial Blood Oxygen Saturation 92.1 % (95-100) L 99.6 % (95-100) Arterial Blood Base Excess -8.3 (-2-2) L -12.7 (-2-2) *L Dirk Test Positive Positive Activated Partial Thromboplast Time 67 SEC (23-33) H Lactic Acid Level 10.60 mmol/L (0.4-2.0) H Ammonia 10 umol/L (11-32) L Troponin I 19.812 ng/mL (0.000-0.056) Thyroid Stimulating Hormone (TSH) 2.277 uiU/mL (0.358-3.740) Height (Feet): 6 Height (Inches): 0.00 Weight (Pounds): 193 Medications Current Medications Medications (Trade) Dose Ordered Sig/Jewel Route PRN Reason Start Time Stop Time Status Last Admin Dose Admin Albuterol/ Ipratropium (Albuterol/ Ipratropium) 3 ml Q6H PRN HHN Shortness of Breath 11/20/18 05:15 11/25/18 05:14 Aspirin (ASA) 81 mg DAILY NG 11/20/18 09:00 12/20/18 08:59 Atorvastatin Calcium (Lipitor) 80 mg BEDTIME ORAL 11/20/18 21:00 12/20/18 20:59 Dextrose 1,000 ml @ 50 mls/hr Q20H IV 11/20/18 05:15 12/20/18 05:14 11/20/18 05:46 Heparin Sodium/ Dextrose 500 ml @ 21.01 mls/ hr ADJUST PER PROTOCOL IV 11/20/18 07:15 12/20/18 05:14 11/20/18 07:52 Morphine Sulfate (Morphine Sulfate) 1 mg Q3H PRN IVP For Pain 11/20/18 05:15 11/27/18 05:14 Norepinephrine Bitartrate 8 mg/ Dextrose 250 ml @ 0 mls/hr Q24H IV 11/20/18 10:00 12/20/18 09:59 11/20/18 09:49 Pantoprazole (Protonix) 40 mg DAILY IVP 11/20/18 09:00 12/20/18 08:59 11/20/18 09:06 Piperacillin Sod/ Tazobactam Sod 2.25 gm/Dextrose 55 ml @ 110 mls/hr Q8H IVPB 11/20/18 10:00 11/27/18 09:59 11/20/18 11:14 Vancomycin HCl (Vanco rx to dose) 1 ea DAILY PRN MISC Per rx protocol 11/20/18 05:15 12/20/18 05:14 Assessment/Plan Problem List: (1) Hyperkalemia (2) fluid overload (3) End stage renal disease on dialysis ICD Codes: N18.6 - End stage renal disease; Z99.2 - Dependence on renal dialysis SNOMED: 167438611 (4) Congestive heart failure (5) Encephalopathy ICD Codes: G93.40 - Encephalopathy, unspecified; R65.20 - Severe sepsis without septic shock SNOMED: 06741134 (6) Severe sepsis ICD Codes: A41.9 - Sepsis, unspecified organism; R65.20 - Severe sepsis without septic shock SNOMED: 63470861 (7) NSTEMI (non-ST elevated myocardial infarction) ICD Codes: I21.4 - Non-ST elevation (NSTEMI) myocardial infarction; R65.20 - Severe sepsis without septic shock SNOMED: 75769605 Diagnosis [place] I: #septic shock #lactic acidosis #ESRD ON HD #Hyperkalemia # toxic metabolic encephalopathy due to severe hypoglycemia #respiratory failure #NSTEMI #severe s/p TAVR - switch d5 bicarb drip at 75cc - HD today given worsening hyperkalemia and acidosis- low blood flow with zero UF now - pressors- on levo and gadiel- - broad spectrum abx - hep drip - STAT echo - trend trop - consider CT abdomen - asa - cardiology eval - critical care consult - monitor electrolyets and ABG Orin Mar M.D. Nov 20, 2018 11:27
--- NOTE | 2018-11-20 11:43 | NUR ---
RD ASSESSMENT & RECOMMENDATIONS SEE CARE ACTIVITY FOR COMPLETE ASSESSMENT DAILY ESTIMATED NEEDS: Needs based on Critical care, ESRD on HD 87.7kg 22-28 kcals/kg 0927-1992 total kcals 1.2-2 g protein/kg 73-175 g total protein Fluid per MD mL/kg total fluid mLs NUTRITION DIAGNOSIS: * Increased pro needs r/t ESRD as evidenced by pt on HD. * Swallowing difficulty r/t respiratory status as evidenced by s/p Code Blue, pt now intubated, NGT, NPO, on high dose pressor support, critical ABG levels, elev LA (10.60), not appropriate for non oral feeds at this time. ENTERAL NUTRITION RECOMMENDATIONS: Pt is not appropriate for NGT feeds at this time Should pt remain intubated w/ improved hemodynamic stability-> rec non oral feeds of NEPRO: start @15ml/hr, advance as tolerated to goal of 45ml/hr x24 hrs to provide 1080ml, 1944 kcal, 87g pro, 785ml free H2O. Rec trophic feed of NEPRO should pt remain intubated on pressor support, Nepro @5ml/hr to maintain gut integrity ------- ADDITIONAL RECOMMENDATIONS: 1) Monitor ICU status, currently hypotensive on pressor support Not hemodynamically stable for NGT feeds Will continue to monitor 2) F/up w/ H&P
--- NOTE | 2018-11-20 11:45 | NUR ---
NURSE NOTES: Seen by Dr. Mar with new orders.
--- NOTE | 2018-11-20 12:00 | NUR ---
NURSE NOTES: BS 46 noted. D50% 50cc was given.
--- NOTE | 2018-11-20 12:00 | Diagnostic Imaging Report ---
Indication: Status post repositioning of nasogastric tube Technique: Supine view of the upper abdomen Comparison: 5 hours earlier Findings: Interim advancement of nasogastric tube, tip now projecting at the level of the fundus/body junction, proximal port well below the expected level of the gastroesophageal junction. The bowel gas pattern is unremarkable. Calcification in the left upper quadrant again noted, likely postinflammatory in nature Impression: Improved and now satisfactory position of nasogastric tube
--- NOTE | 2018-11-20 12:37 | Pulmonolgy Critical Care Note ---
Critical Care - Asmt/Plan Problems: (1) Severe sepsis (2) NSTEMI (non-ST elevated myocardial infarction) (3) End stage renal failure on dialysis (4) Congestive heart failure (5) Lactic acid acidosis (6) CHF (congestive heart failure) (7) Aortic stenosis, residual Assessment/Plan: STAT repeat ABG AC 24 VC 600 Titrate down FiO2 to keep SaO2 > 90% HHN's Vanco/Zosyn (d1) F/U Cx's Trend LA Unstable for HD, needs CVVHD, ? transfer HCO3- gtt d/w renal Taper NE to keep MAP > 60, can add VASO F/U TTE Cards eval F/U renal recs Continue IVUH Monitor for bleeding Serial abdominal exams Consider CT CAP if/when stable STAT duplex bLE Monitor MS FC, prognosis extremely poor Disposition: keep in ICU Time Spent (Minutes): 70 Notes Reviewed: renal Discussed with: nurses, consultants, family member Critical Care - Objective Last 24 Hour Vital Signs Date Time Temp Pulse Resp B/P (MAP) Pulse Ox O2 Delivery O2 Flow Rate FiO2 11/20/18 11:30 131 34 92/53 100 Mechanical Ventilator 60 11/20/18 11:00 131 30 60 11/20/18 11:00 131 33 108/48 100 Mechanical Ventilator 60 11/20/18 10:30 134 29 91/46 100 Mechanical Ventilator 100 11/20/18 10:00 133 27 102/50 100 Mechanical Ventilator 100 11/20/18 09:57 105/44 11/20/18 09:49 101/48 11/20/18 09:25 135 27 80 11/20/18 09:14 108/56 11/20/18 09:00 137 25 93/27 100 Mechanical Ventilator 100 11/20/18 08:30 137 23 89/46 96 Mechanical Ventilator 100 11/20/18 08:14 91/52 11/20/18 08:00 Endotracheal Tube 11/20/18 08:00 98.0 137 23 96/49 96 Mechanical Ventilator 100 11/20/18 07:28 91/52 11/20/18 07:05 147 21 100 11/20/18 07:03 154 20 100 Mechanical Ventilator 100 11/20/18 07:00 135 45 98/41 96 Nasal Cannula 2.0 11/20/18 06:00 139 45 81/51 96 Nasal Cannula 2.0 11/20/18 05:32 Nasal Cannula 2.0 11/20/18 05:17 2.0 11/20/18 05:00 140 45 100/53 96 Nasal Cannula 2.0 11/20/18 04:10 141 48 99/51 95 Nasal Cannula 2.0 11/20/18 04:10 98.7 141 48 99/51 95 Nasal Cannula 2.0 11/20/18 04:00 98.4 141 45 126/78 97 Nasal Cannula 2.0 11/20/18 02:34 98.7 138 39 113/79 100 Nasal Cannula 2.0 11/20/18 01:30 99.9 138 39 121/75 98 Nasal Cannula 2.0 11/19/18 23:58 135 20 Room Air 11/19/18 23:58 99.3 135 30 126/75 96 Room Air 11/19/18 23:57 98.2 89 18 147/62 (90) 99 Room Air Status: somnolent Condition: critical HEENT: atraumatic, normocephalic Lungs: rhonchi, other - Chest wound Heart: HR/BP unstable Abdomen: soft, non-tender, active bowel sounds Extremities: no C/C/E Accucheck: 46 Blood Sugars: BS not controlled Critical Care - Subjective ROS Limited/Unobtainable: Yes ICU Day: 1 Intubation Day: 1 Interval Events: 53 M h/o psevere bioprosthetic S/P AVR, bioprosthetic IE, CHF, Devonte TAVR, seizure DO, CAD, HTN, HL, PSA A/W AMS, code blue called ON, intubated Now on NE 30 LA increased D/W renal unable to dialyze Condition: critical IV Access: central EKG Rhythm: Sinus Tachycardia FI02: 60 Vent Support Breath Rate: 26 Vent Support Mode: AC Vent Tidal Volume: 600 Sputum Amount: Small PEEP: 5.0 PIP: 30 I&O: Intake and Output 11/19/18 11/20/18 18:59 06:59 Intake Total 220 ml Output Total 0 ml Balance 220 ml Intake IV Total 220 ml Output Urine Total 0 ml CXR: ETT NGT BiB atx ET-Tube: 7.5 ET Position: 22 Labs: Laboratory Tests Test 11/20/18 00:10 11/20/18 00:54 11/20/18 01:45 11/20/18 04:53 White Blood Count 9.8 K/UL (4.8-10.8) Red Blood Count 4.19 M/UL (4.70-6.10) L Hemoglobin 9.8 G/DL (14.2-18.0) L Hematocrit 33.0 % (42.0-52.0) L Mean Corpuscular Volume 79 FL (80-99) L Mean Corpuscular Hemoglobin 23.3 PG (27.0-31.0) L Mean Corpuscular Hemoglobin Concent 29.6 G/DL (32.0-36.0) L Red Cell Distribution Width 20.3 % (11.6-14.8) H Platelet Count 97 K/UL (150-450) L Mean Platelet Volume 7.1 FL (6.5-10.1) Neutrophils (%) (Auto) % (45.0-75.0) Lymphocytes (%) (Auto) % (20.0-45.0) Monocytes (%) (Auto) % (1.0-10.0) Eosinophils (%) (Auto) % (0.0-3.0) Basophils (%) (Auto) % (0.0-2.0) Prothrombin Time 18.8 SEC (9.30-11.50) H Prothromb Time International Ratio 1.8 (0.9-1.1) H Activated Partial Thromboplast Time 40 SEC (23-33) H Sodium Level 149 MMOL/L (136-145) H Potassium Level 5.5 MMOL/L (3.5-5.1) H Chloride Level 107 MMOL/L (98-107) Carbon Dioxide Level 23 MMOL/L (21-32) Anion Gap 19 mmol/L (5-15) H Blood Urea Nitrogen 60 mg/dL (7-18) H Creatinine 9.7 MG/DL (0.55-1.30) H Estimat Glomerular Filtration Rate 6.9 mL/min (>60) Glucose Level 51 MG/DL (74-106) L 160 MG/DL (74-106) #H Lactic Acid Level 6.30 mmol/L (0.4-2.0) H 7.00 mmol/L (0.66-2.22) H Calcium Level 10.8 MG/DL (8.5-10.1) H Total Bilirubin 5.9 MG/DL (0.2-1.0) H Direct Bilirubin 3.9 MG/DL (0.0-0.3) H Aspartate Amino Transf (AST/SGOT) 105 U/L (15-37) H Alanine Aminotransferase (ALT/SGPT) 46 U/L (12-78) Alkaline Phosphatase 433 U/L (46-116) H Total Creatine Kinase 403 U/L (26-308) H Creatine Kinase MB 12.4 NG/ML (0.0-3.6) H Creatine Kinase MB Relative Index 3.0 Troponin I 8.507 ng/mL (0.000-0.056) Pro-B-Type Natriuretic Peptide > 32990 pg/mL (0-125) H Total Protein 8.0 G/DL (6.4-8.2) Albumin 2.7 G/DL (3.4-5.0) L Globulin 5.3 g/dL Albumin/Globulin Ratio 0.5 (1.0-2.7) L Arterial Blood pH 7.390 (7.350-7.450) Arterial Blood Partial Pressure CO2 32.1 mmHg (35.0-45.0) L Arterial Blood Partial Pressure O2 82.6 mmHg (75.0-100.0) Arterial Blood HCO3 19.0 mmol/L (22.0-26.0) L Arterial Blood Oxygen Saturation 94.7 % (95-100) L Arterial Blood Base Excess -5.3 (-2-2) L Dirk Test Positive Test 11/20/18 05:27 11/20/18 08:15 11/20/18 08:35 11/20/18 12:00 Arterial Blood pH 7.400 (7.350-7.450) 7.118 (7.350-7.450) Arterial Blood Partial Pressure CO2 25.4 mmHg (35.0-45.0) L 51.0 mmHg (35.0-45.0) H Arterial Blood Partial Pressure O2 71.7 mmHg (75.0-100.0) L 381.7 mmHg (75.0-100.0) H Arterial Blood HCO3 15.4 mmol/L (22.0-26.0) *L 16.1 mmol/L (22.0-26.0) *L Arterial Blood Oxygen Saturation 92.1 % (95-100) L 99.6 % (95-100) Arterial Blood Base Excess -8.3 (-2-2) L -12.7 (-2-2) *L Dirk Test Positive Positive Activated Partial Thromboplast Time 67 SEC (23-33) H Pending Lactic Acid Level 10.60 mmol/L (0.4-2.0) H Ammonia 10 umol/L (11-32) L Troponin I 19.812 ng/mL (0.000-0.056) Thyroid Stimulating Hormone (TSH) 2.277 uiU/mL (0.358-3.740) Valentin Smith MD Nov 20, 2018 12:37
--- NOTE | 2018-11-20 12:45 | NUR ---
NURSE NOTES: Seen by Dr. Smith with new orders
--- NOTE | 2018-11-20 12:54 | Diagnostic Imaging Report ---
Indication: Shortness of breath Technique: One view of the chest Comparison: 10/22/2014 Findings: The heart is enlarged. Entering from median sternotomy. Mineral placement of an aortic valve prosthesis. There is an innominate venous stent now present. There is mild interstitial edema bilaterally. The right pleural space is clear. The left diaphragm is cut off of the imaging volume, demonstrated immediately cleared on subsequent images Impression: Cardiomegaly with mild interstitial edema Other findings as noted
[2018-11-20] MEDS ORDERED: Sodium Bicarbonate 150 ML in D5W 1000ml 1,000 ML IV SCH (13:30)
--- NOTE | 2018-11-20 13:31 | NUR ---
NURSE NOTES: BS is still low 46. D50% 50cc was given.
--- NOTE | 2018-11-20 14:34 | NUR ---
[employer] REP 53 YO MALE BIBA FROM HOME TO ER CC PT FOUND DOWN AT HOME BS 22 GLUCAGON GIVEN IN FIELD SI: RESP FAILURE ETT/VENT SUPPORT, HYPOGLYCEMIA T. 98.2 HR 84 RR 18 B/P 147/62 AC 14 TV 500 FIO2 100 PEEP 5 PH 7.34 PCO2 30.1 PO2 240 HCO3 16.2 O2 SAT [address]= NO ACUTE FINDINGS CXR=CARDIOMEGALY LACTIS ACID 6.30 TROP 8.507 BNP>3500 GLU 81 BUN 60 CR 9.7 IS: D50 IV X 3 AMPS ADMITTED TO ICU @ 0410 ICU STATUS DCP PENDING HOSPITAL STAY
[2018-11-20 14:39] LABS: ANION GAP 20 mmol/L (5-15); BLOOD UREA NITROGEN 79 mg/dL (7-18); CALCIUM 11.2 MG/DL (8.5-10.1); CARBON DIOXIDE 20 MMOL/L (21-32); CHLORIDE 106 MMOL/L (98-107); CREATININE 10.3 MG/DL (0.55-1.30); POTASSIUM 4.9 MMOL/L (3.5-5.1); SODIUM 145 MMOL/L (136-145)
[2018-11-20] MEDS: Phenylephrine 50 MG in D5W 245 ML IV SCH ×2 (15:17→22:13)
[2018-11-20] MEDS: Acetaminophen 650mg/20.3ml NG PRN (16:31)
--- NOTE | 2018-11-20 17:00 | NUR ---
NURSE NOTES: Critical low blood sugar noted. D50% 50cc was given.
--- NOTE | 2018-11-20 17:30 | NUR ---
NURSE NOTES: Notified Dr. Knight regarding troponin level. He said he will be here soon.
--- NOTE | 2018-11-20 17:45 | NUR ---
NURSE NOTES: Seen by Dr. Asencio with new orders.
--- NOTE | 2018-11-20 18:00 | NUR ---
NURSE NOTES: Critical low blood sugar noted. D50% 50cc was given.
--- NOTE | 2018-11-20 18:10 | NUR ---
NURSE NOTES: Dr. mSith notified of critical low BS at 1700 D50 1 amp given and repeat BS again critical low at 1800 another D50 1amp given. Latest ABG results relayed to him
[2018-11-20] MEDS: Dextrose 10% 1,000 ML IV SCH (18:15)
--- NOTE | 2018-11-20 18:38 | History and Physical ---
History of Present Illness General Date patient seen: Nov 20, 2018 Time patient seen: 18:30 Reason for Hospitalization: Altered Mental Status Present Illness HPI Patient was admitted for AMS intubated in ER, Troponin elevated and rising, no 2 pressors, hx of ESRD on dialysis. 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 Negative for acute intracranial bleed or mass effect Echocardiogram: LVEF 55%, mild aortic stenosis, normally functioning TAVR, mild pulmonary hypertension. (but study was done while on pressors) Allergies: Coded Allergies: COCAINE (Verified Allergy, Intermediate, Hives, 10/22/14) Medication History Scheduled Aspirin* (Aspirin*), 81 MG ORAL DAILY, (Reported) Benazepril Hcl* (Benazepril Hcl*), 20 MG ORAL DAILY, (Reported) Carvedilol* (Carvedilol*), 12.5 MG ORAL BID, (Reported) Cephalexin* (Keflex*), 500 MG ORAL EVERY 12 HOURS Clopidogrel Bisulfate* (Plavix*), 75 MG ORAL DAILY, (Reported) Famotidine (Famotidine), 20 MG ORAL DAILY, (Reported) Metoprolol Succinate* (Metoprolol Succinate*), 50 MG ORAL DAILY, (Reported) Naproxen* (Naproxen*), 375 MG ORAL TWICE A DAY, (Reported) Phenytoin Sodium Extended* (Phenytoin Sodium Extended*), 300 MG ORAL DAILY, ( Reported) Sevelamer Hcl (Renagel), 800 MG ORAL THREE TIMES A DAY, (Reported) Simvastatin (Zocor), 40 MG ORAL BEDTIME, (Reported) Vitamin B Cmplx/Vit C/Folic AC (Nephro-Divine Tablet), 1 TAB ORAL DAILY, (Reported ) [phenytoin], 100 MG PO . 2 TABS AM/1TAB PM, (Reported) Scheduled PRN Hydrocodone/Acetaminophen 10-300 Mg Tablet (Vicodin Hp 10-300 Mg Tablet), 1 TAB ORAL Q4H PRN for For Pain, (Reported) Patient History Healthcare decision maker Resuscitation status Full Code Advanced Directive on File Review of Systems Constitutional: Reports: malaise, weakness Eye: Reports: no symptoms ENT: Reports: no symptoms Respiratory: Reports: no symptoms Cardiovascular: Reports: no symptoms Gastrointestinal: Reports: no symptoms Genitourinary: Reports: no symptoms Musculoskeletal: Reports: no symptoms Skin: Reports: no symptoms Psychiatric: Reports: no symptoms Neurological: Reports: no symptoms Endocrine: Reports: no symptoms Hematologic/Lymphatic: Reports: no symptoms Physical Exam General Appearance: lethargic Lines, tubes and drains: peripheral, central line HEENT: normocephalic, atraumatic Neck: non-tender, normal alignment, supple, normal inspection Respiratory/Chest: chest wall non-tender, crackles/rales, rhonchi - bilaterally Cardiovascular/Chest: normal peripheral pulses, normal rate Abdomen: normal bowel sounds, non tender, soft, no organomegaly, no mass Extremities: normal range of motion, non-tender, normal inspection, no calf tenderness, normal capillary refill, non-pitting Skin Exam: normal pigmentation, warm/dry, cyanotic Neurologic: motor weakness, sensory deficit, disoriented, unresponsiveness Last 24 Hour Vital Signs Date Time Temp Pulse Resp B/P (MAP) Pulse Ox O2 Delivery O2 Flow Rate FiO2 11/20/18 18:28 91/47 11/20/18 16:44 130 37 50 11/20/18 15:17 132 72/47 11/20/18 15:00 133 32 83/44 100 Mechanical Ventilator 50 11/20/18 15:00 83/44 11/20/18 15:00 132 33 50 11/20/18 14:31 133 36 89/34 100 Mechanical Ventilator 50 11/20/18 14:00 135 33 84/41 100 Mechanical Ventilator 50 11/20/18 14:00 84/41 11/20/18 13:49 95/45 11/20/18 13:30 130 34 95/45 98 Mechanical Ventilator 50 11/20/18 13:05 134 38 40 11/20/18 13:00 133 34 110/57 98 Mechanical Ventilator 60 11/20/18 13:00 110/57 11/20/18 12:30 132 35 103/56 98 Mechanical Ventilator 60 11/20/18 12:00 130 11/20/18 12:00 110/42 11/20/18 12:00 99.0 131 33 110/42 100 Mechanical Ventilator 60 11/20/18 12:00 60 11/20/18 12:00 Endotracheal Tube 11/20/18 11:30 131 34 92/53 100 Mechanical Ventilator 60 11/20/18 11:00 131 30 60 11/20/18 11:00 89/46 11/20/18 11:00 131 33 108/48 100 Mechanical Ventilator 60 11/20/18 10:30 134 29 91/46 100 Mechanical Ventilator 100 11/20/18 10:00 133 27 102/50 100 Mechanical Ventilator 100 11/20/18 10:00 105/44 11/20/18 09:57 105/44 11/20/18 09:49 101/48 11/20/18 09:25 135 27 80 11/20/18 09:14 108/56 11/20/18 09:00 137 25 93/27 100 Mechanical Ventilator 100 11/20/18 08:30 137 23 89/46 96 Mechanical Ventilator 100 11/20/18 08:14 91/52 11/20/18 08:00 138 11/20/18 08:00 Endotracheal Tube 11/20/18 08:00 98.0 137 23 96/49 96 Mechanical Ventilator 100 11/20/18 07:28 91/52 11/20/18 07:05 147 21 100 11/20/18 07:03 154 20 100 Mechanical Ventilator 100 11/20/18 07:00 135 45 98/41 96 Nasal Cannula 2.0 11/20/18 06:00 139 45 81/51 96 Nasal Cannula 2.0 11/20/18 05:32 Nasal Cannula 2.0 11/20/18 05:17 2.0 11/20/18 05:00 140 45 100/53 96 Nasal Cannula 2.0 11/20/18 04:10 141 48 99/51 95 Nasal Cannula 2.0 11/20/18 04:10 98.7 141 48 99/51 95 Nasal Cannula 2.0 11/20/18 04:00 98.4 141 45 126/78 97 Nasal Cannula 2.0 11/20/18 02:34 98.7 138 39 113/79 100 Nasal Cannula 2.0 11/20/18 01:30 99.9 138 39 121/75 98 Nasal Cannula 2.0 11/19/18 23:58 135 20 Room Air 11/19/18 23:58 99.3 135 30 126/75 96 Room Air 11/19/18 23:57 98.2 89 18 147/62 (90) 99 Room Air Intake and Output 11/19/18 11/20/18 18:59 06:59 Intake Total 220 ml Output Total 0 ml Balance 220 ml Intake IV Total 220 ml Output Urine Total 0 ml Laboratory Tests Test 11/20/18 00:10 11/20/18 00:54 11/20/18 01:45 11/20/18 04:53 White Blood Count 9.8 K/UL (4.8-10.8) Red Blood Count 4.19 M/UL (4.70-6.10) L Hemoglobin 9.8 G/DL (14.2-18.0) L Hematocrit 33.0 % (42.0-52.0) L Mean Corpuscular Volume 79 FL (80-99) L Mean Corpuscular Hemoglobin 23.3 PG (27.0-31.0) L Mean Corpuscular Hemoglobin Concent 29.6 G/DL (32.0-36.0) L Red Cell Distribution Width 20.3 % (11.6-14.8) H Platelet Count 97 K/UL (150-450) L Mean Platelet Volume 7.1 FL (6.5-10.1) Neutrophils (%) (Auto) % (45.0-75.0) Lymphocytes (%) (Auto) % (20.0-45.0) Monocytes (%) (Auto) % (1.0-10.0) Eosinophils (%) (Auto) % (0.0-3.0) Basophils (%) (Auto) % (0.0-2.0) Prothrombin Time 18.8 SEC (9.30-11.50) H Prothromb Time International Ratio 1.8 (0.9-1.1) H Activated Partial Thromboplast Time 40 SEC (23-33) H Sodium Level 149 MMOL/L (136-145) H Potassium Level 5.5 MMOL/L (3.5-5.1) H Chloride Level 107 MMOL/L (98-107) Carbon Dioxide Level 23 MMOL/L (21-32) Anion Gap 19 mmol/L (5-15) H Blood Urea Nitrogen 60 mg/dL (7-18) H Creatinine 9.7 MG/DL (0.55-1.30) H Estimat Glomerular Filtration Rate 6.9 mL/min (>60) Glucose Level 51 MG/DL (74-106) L 160 MG/DL (74-106) #H Lactic Acid Level 6.30 mmol/L (0.4-2.0) H 7.00 mmol/L (0.66-2.22) H Calcium Level 10.8 MG/DL (8.5-10.1) H Total Bilirubin 5.9 MG/DL (0.2-1.0) H Direct Bilirubin 3.9 MG/DL (0.0-0.3) H Aspartate Amino Transf (AST/SGOT) 105 U/L (15-37) H Alanine Aminotransferase (ALT/SGPT) 46 U/L (12-78) Alkaline Phosphatase 433 U/L (46-116) H Total Creatine Kinase 403 U/L (26-308) H Creatine Kinase MB 12.4 NG/ML (0.0-3.6) H Creatine Kinase MB Relative Index 3.0 Troponin I 8.507 ng/mL (0.000-0.056) Pro-B-Type Natriuretic Peptide > 31975 pg/mL (0-125) H Total Protein 8.0 G/DL (6.4-8.2) Albumin 2.7 G/DL (3.4-5.0) L Globulin 5.3 g/dL Albumin/Globulin Ratio 0.5 (1.0-2.7) L Arterial Blood pH 7.390 (7.350-7.450) Arterial Blood Partial Pressure CO2 32.1 mmHg (35.0-45.0) L Arterial Blood Partial Pressure O2 82.6 mmHg (75.0-100.0) Arterial Blood HCO3 19.0 mmol/L (22.0-26.0) L Arterial Blood Oxygen Saturation 94.7 % (95-100) L Arterial Blood Base Excess -5.3 (-2-2) L Dirk Test Positive Test 11/20/18 05:27 11/20/18 08:15 11/20/18 08:35 11/20/18 12:00 Arterial Blood pH 7.400 (7.350-7.450) 7.118 (7.350-7.450) Arterial Blood Partial Pressure CO2 25.4 mmHg (35.0-45.0) L 51.0 mmHg (35.0-45.0) H Arterial Blood Partial Pressure O2 71.7 mmHg (75.0-100.0) L 381.7 mmHg (75.0-100.0) H Arterial Blood HCO3 15.4 mmol/L (22.0-26.0) *L 16.1 mmol/L (22.0-26.0) *L Arterial Blood Oxygen Saturation 92.1 % (95-100) L 99.6 % (95-100) Arterial Blood Base Excess -8.3 (-2-2) L -12.7 (-2-2) *L Dirk Test Positive Positive Activated Partial Thromboplast Time 67 SEC (23-33) H 72 SEC (23-33) H Lactic Acid Level 10.60 mmol/L (0.4-2.0) H Ammonia 10 umol/L (11-32) L Troponin I 19.812 ng/mL (0.000-0.056) Thyroid Stimulating Hormone (TSH) 2.277 uiU/mL (0.358-3.740) Test 11/20/18 12:50 11/20/18 14:00 11/20/18 16:10 Arterial Blood pH 7.348 (7.350-7.450) Arterial Blood Partial Pressure CO2 30.1 mmHg (35.0-45.0) L Arterial Blood Partial Pressure O2 240.0 mmHg (75.0-100.0) H Arterial Blood HCO3 16.2 mmol/L (22.0-26.0) *L Arterial Blood Oxygen Saturation 99.6 % (95-100) Arterial Blood Base Excess -8.4 (-2-2) L Dirk Test Positive Sodium Level 145 MMOL/L (136-145) Potassium Level 4.9 MMOL/L (3.5-5.1) Chloride Level 106 MMOL/L (98-107) Carbon Dioxide Level 20 MMOL/L (21-32) L Anion Gap 20 mmol/L (5-15) H Blood Urea Nitrogen 79 mg/dL (7-18) H Creatinine 10.3 MG/DL (0.55-1.30) H Estimat Glomerular Filtration Rate 6.4 mL/min (>60) Glucose Level 171 MG/DL (74-106) H Lactic Acid Level 6.20 mmol/L (0.66-2.22) H Calcium Level 11.2 MG/DL (8.5-10.1) H Troponin I 32.069 ng/mL (0.000-0.056) Height (Feet): 6 Height (Inches): 0.00 Weight (Pounds): 188 Medications Current Medications Medications (Trade) Dose Ordered Sig/Jewel Route PRN Reason Start Time Stop Time Status Last Admin Dose Admin Acetaminophen (Tylenol) 650 mg Q4H PRN NG fever 11/20/18 16:00 12/20/18 15:59 11/20/18 16:31 Albuterol/ Ipratropium (Albuterol/ Ipratropium) 3 ml Q6H PRN HHN Shortness of Breath 11/20/18 05:15 11/25/18 05:14 Aspirin (ASA) 81 mg DAILY NG 11/20/18 09:00 12/20/18 08:59 Atorvastatin Calcium (Lipitor) 80 mg BEDTIME ORAL 11/20/18 21:00 12/20/18 20:59 Dextrose 1,000 ml @ 75 mls/hr [id number] IV 11/20/18 18:15 12/20/18 18:14 Dextrose (Dextrose 50%) 50 ml Q30M PRN IV if BS<60 11/20/18 11:35 12/20/18 11:34 11/20/18 17:05 Heparin Sodium/ Dextrose 500 ml @ 21.01 mls/ hr ADJUST PER PROTOCOL IV 11/20/18 07:15 12/20/18 05:14 11/20/18 07:52 Morphine Sulfate (Morphine Sulfate) 1 mg Q3H PRN IVP For Pain 11/20/18 05:15 11/27/18 05:14 Norepinephrine Bitartrate 8 mg/ Dextrose 250 ml @ 0 mls/hr Q24H IV 11/20/18 10:00 12/20/18 09:59 11/20/18 18:28 Pantoprazole (Protonix) 40 mg DAILY IVP 11/20/18 09:00 12/20/18 08:59 11/20/18 09:06 Phenylephrine HCl 50 mg/Dextrose 250 ml @ 0 mls/hr Q24H IV 11/20/18 12:30 12/20/18 12:29 11/20/18 15:17 Piperacillin Sod/ Tazobactam Sod 2.25 gm/Dextrose 55 ml @ 110 mls/hr Q8H IVPB 11/20/18 10:00 11/27/18 09:59 11/20/18 17:05 Sodium Bicarbonate 150 ml/Dextrose 1,150 ml @ 75 mls/hr [id number] IV 11/20/18 13:30 12/20/18 13:29 11/20/18 14:16 Vancomycin HCl (Vanco rx to dose) 1 ea DAILY PRN MISC Per rx protocol 11/20/18 05:15 12/20/18 05:14 Assessment/Plan Status: stable Assessment/Plan: Assessment/Plan Problem List: (1) Hyperkalemia (2) fluid overload (3) End stage renal disease on dialysis (4) Congestive heart failure (5) Encephalopathy (6) Severe sepsis (7) NSTEMI (non-ST elevated myocardial infarction) (8) hx of TAVR (9) hyperkalemia PLAN: Echocardiogram with normal LV function Wean pressors Start midodrine to wean levophed IV Abx empiric, follow cultures Trend troponin Will need cardiac cath when stable to evaluate coronary anatomy Monitor on telemetry for arrhythmias HD per nephrology Critical care 35 minutes Prognosis guarded/poor Leo Knight MD Nov 20, 2018 18:38
--- NOTE | 2018-11-20 18:39 | NUR ---
NURSE NOTES: Seen by Dr. Knight.
--- NOTE | 2018-11-20 19:15 | NUR ---
NURSE NOTES: Still Critical low blood sugar noted. D50% 50cc was given.
--- NOTE | 2018-11-20 19:23 | NUR ---
RESPIRATORY NOTE: PT RECEIVED STABLE ON CURRENT VENT SETTINGS. AC/VC 26, 600, 50%, +5. ALARMS ARE ON AND AUDIBLE. PT IS UNRESPONSIVE. VENT CIRCUIT AND SX TUBING ARE SECURE AND OUT OF THE WAY. HR IS AT 128 BPM AND RR IS AT 39 BPM BUT PT IS TOLERATING VENT SETTINGS WELL. SPO2 CURRENTLY AT 100% ON AN FIO2 OF 50%. WILL CONTINUE TO CLOSELY MONITOR.
--- NOTE | 2018-11-20 19:45 | NUR ---
HAND-OFF: Report given to NAI Parham. Endorsed plan of care.
[2018-11-20] MEDS ORDERED: Dyna-Hex 2% Top Sol 2oz TOPIC SCH (20:00)
--- NOTE | 2018-11-20 20:00 | NUR ---
NURSE NOTES: Recvd.on a vent.orally intubated.See settings.Lungs diminished BS at bases.P.Ox-100%.Suctioned,Beige sec.NS Lavaged.Neg.GAG Reflex.Pos. chg.unresponsive.Pupils (R)pinpoint sz.(L)2mm both sluggishly reactive.See V/S.LEVO.Drip in progress at max.dose.Neosyneph.drip infusing at 200mcg/min.Pos. MA on Heparin drip inf.with [facility] jarek.AVF (L) upper arm pos.Thrill/Bruit.HD nurse here decline to Dialyze pt.R/T patient critical cond. made aware.[id number] another D50 IVP recvd.
--- NOTE | 2018-11-20 20:11 | Cardiology Report ---
APPROVED REPORT EXAM: Two-dimensional and M-mode echocardiogram with Doppler and color Doppler. INDICATION Screening M-Mode DIMENSIONS IVSd1.5 (0.7-1.1cm)Left Atrium (MM)4.2 (1.6-4.0cm) LVDd3.0 (3.5-5.6cm)Aortic Root2.1 (2.0-3.7cm) PWd2.8 (0.7-1.1cm)Aortic Cusp Exc.1.3 (1.5-2.0cm) LVDs1.9 (2.5-4.0cm) PWs2.9 cm Normal left ventricular chamber size, systolic function and wall motion. Left ventricular ejection fraction estimated to be 75%. Moderate left ventricular hypertrophy. No evidence of pericardial effusion. All other cardiac chamber sizes are within normal limits. Aortic valve calcification with decreased cusp excursion c/w aortic stenosis. Mildly thickened mitral valve leaflets with normal excursion. Mild mitral annulus and aortic root calcification. Pulmonic valve not well visualized. Normal tricuspid valve structure. IVC dilated at 2.5 cm without physiological collapse, estimated RAP is 15 mmHg. A color flow and spectral Doppler study was performed and revealed: Mild to moderate aortic regurgitation. Peak aortic valve gradient of 32 mmHg and a mean of 13 mmHg. Aortic valve area 1.6 cm2 calculated by continuity equation. Trace mitral regurgitation. Mitral diastolic velocities suggest mild left ventricular diastolic dysfunction (Grade I). Trace tricuspid regurgitation. Tricuspid systolic velocities suggests peak right ventricular systolic pressure of 19 mmHg Trace pulmonic regurgitation present.
--- NOTE | 2018-11-20 20:57 | History and Physical ---
History of Present Illness General Date patient seen: Nov 20, 2018 Reason for Hospitalization: Altered Mental Status Present Illness HPI 53 M h/o ESRD (TTS), severe bioprosthetic S/P AVR, bioprosthetic IE, CHF, Devonte TAVR, seizure DO, CAD, HTN, HL, PSA was brought in by EMS from home after he was found unresponsive. Per EMS family called [employer] because they were not able to reach the patient, last well-known time was yesterday afternoon. Accu- check at scene was critically low, given glucagon, pt arrived at ED still lethargic. Pt noted to have elevated troponins, roaster helper at [facility] contacted, pt not a candidate for catherization, heparin and abx started and admitted to ICU. Allergies: Coded Allergies: COCAINE (Verified Allergy, Intermediate, Hives, 10/22/14) Medication History Scheduled Aspirin* (Aspirin*), 81 MG ORAL DAILY, (Reported) Benazepril Hcl* (Benazepril Hcl*), 20 MG ORAL DAILY, (Reported) Carvedilol* (Carvedilol*), 12.5 MG ORAL BID, (Reported) Cephalexin* (Keflex*), 500 MG ORAL EVERY 12 HOURS Clopidogrel Bisulfate* (Plavix*), 75 MG ORAL DAILY, (Reported) Famotidine (Famotidine), 20 MG ORAL DAILY, (Reported) Metoprolol Succinate* (Metoprolol Succinate*), 50 MG ORAL DAILY, (Reported) Naproxen* (Naproxen*), 375 MG ORAL TWICE A DAY, (Reported) Phenytoin Sodium Extended* (Phenytoin Sodium Extended*), 300 MG ORAL DAILY, ( Reported) Sevelamer Hcl (Renagel), 800 MG ORAL THREE TIMES A DAY, (Reported) Simvastatin (Zocor), 40 MG ORAL BEDTIME, (Reported) Vitamin B Cmplx/Vit C/Folic AC (Nephro-Divine Tablet), 1 TAB ORAL DAILY, (Reported ) [phenytoin], 100 MG PO . 2 TABS AM/1TAB PM, (Reported) Scheduled PRN Hydrocodone/Acetaminophen 10-300 Mg Tablet (Vicodin Hp 10-300 Mg Tablet), 1 TAB ORAL Q4H PRN for For Pain, (Reported) Patient History Limited by: medical condition History Provided By: Family Member, Medical Record, EMS Healthcare decision maker Resuscitation status Full Code Advanced Directive on File Review of Systems ROS Narrative unable to obtain due to intubation Physical Exam Last 24 Hour Vital Signs Date Time Temp Pulse Resp B/P (MAP) Pulse Ox O2 Delivery O2 Flow Rate FiO2 11/20/18 19:15 128 36 90/46 100 Mechanical Ventilator 50 11/20/18 19:00 131 37 83/44 100 Mechanical Ventilator 50 11/20/18 19:00 83/44 11/20/18 18:30 130 36 93/53 100 Mechanical Ventilator 50 11/20/18 18:28 91/47 11/20/18 18:00 94/46 11/20/18 18:00 50 11/20/18 18:00 130 37 94/46 93 Mechanical Ventilator 50 11/20/18 17:30 132 37 92/46 100 Mechanical Ventilator 50 11/20/18 17:01 102.4 11/20/18 17:00 119/87 11/20/18 17:00 102.4 130 39 119/87 100 Mechanical Ventilator 50 11/20/18 16:44 130 37 50 11/20/18 16:30 132 35 106/57 100 Mechanical Ventilator 50 11/20/18 16:00 132 11/20/18 16:00 102.4 133 33 104/56 100 Mechanical Ventilator 50 11/20/18 16:00 104/56 11/20/18 16:00 Endotracheal Tube 11/20/18 15:30 132 34 99/49 100 Mechanical Ventilator 50 11/20/18 15:17 132 72/47 11/20/18 15:00 133 32 83/44 100 Mechanical Ventilator 50 11/20/18 15:00 83/44 11/20/18 15:00 132 33 50 11/20/18 14:31 133 36 89/34 100 Mechanical Ventilator 50 11/20/18 14:00 135 33 84/41 100 Mechanical Ventilator 50 11/20/18 14:00 84/41 11/20/18 13:49 95/45 11/20/18 13:30 130 34 95/45 98 Mechanical Ventilator 50 11/20/18 13:05 134 38 40 11/20/18 13:00 133 34 110/57 98 Mechanical Ventilator 60 11/20/18 13:00 110/57 11/20/18 12:30 132 35 103/56 98 Mechanical Ventilator 60 11/20/18 12:00 130 7/29/19 12:00 110/42 11/20/18 12:00 99.0 131 33 110/42 100 Mechanical Ventilator 60 11/20/18 12:00 60 11/20/18 12:00 Endotracheal Tube 11/20/18 11:30 131 34 92/53 100 Mechanical Ventilator 60 11/20/18 11:00 131 30 60 11/20/18 11:00 89/46 11/20/18 11:00 131 33 108/48 100 Mechanical Ventilator 60 11/20/18 10:30 134 29 91/46 100 Mechanical Ventilator 100 11/20/18 10:00 133 27 102/50 100 Mechanical Ventilator 100 11/20/18 10:00 105/44 11/20/18 09:57 105/44 11/20/18 09:49 101/48 11/20/18 09:25 135 27 80 11/20/18 09:14 108/56 11/20/18 09:00 137 25 93/27 100 Mechanical Ventilator 100 11/20/18 08:30 137 23 89/46 96 Mechanical Ventilator 100 11/20/18 08:14 91/52 11/20/18 08:00 138 11/20/18 08:00 Endotracheal Tube 11/20/18 08:00 98.0 137 23 96/49 96 Mechanical Ventilator 100 11/20/18 07:28 91/52 11/20/18 07:05 147 21 100 11/20/18 07:03 154 20 100 Mechanical Ventilator 100 11/20/18 07:00 135 45 98/41 96 Nasal Cannula 2.0 11/20/18 06:00 139 45 81/51 96 Nasal Cannula 2.0 11/20/18 05:32 Nasal Cannula 2.0 11/20/18 05:17 2.0 11/20/18 05:00 140 45 100/53 96 Nasal Cannula 2.0 11/20/18 04:10 141 48 99/51 95 Nasal Cannula 2.0 11/20/18 04:10 98.7 141 48 99/51 95 Nasal Cannula 2.0 11/20/18 04:00 98.4 141 45 126/78 97 Nasal Cannula 2.0 11/20/18 02:34 98.7 138 39 113/79 100 Nasal Cannula 2.0 11/20/18 01:30 99.9 138 39 121/75 98 Nasal Cannula 2.0 11/19/18 23:58 135 20 Room Air 11/19/18 23:58 99.3 135 30 126/75 96 Room Air 11/19/18 23:57 98.2 89 18 147/62 (90) 99 Room Air Intake and Output 11/19/18 11/20/18 19:00 07:00 Intake Total 290.88 ml Output Total 0 ml Balance 290.88 ml Intake IV Total 290.88 ml Output Urine Total 0 ml Laboratory Tests Test 11/20/18 00:10 11/20/18 00:54 11/20/18 01:45 11/20/18 04:53 White Blood Count 9.8 K/UL (4.8-10.8) Red Blood Count 4.19 M/UL (4.70-6.10) L Hemoglobin 9.8 G/DL (14.2-18.0) L Hematocrit 33.0 % (42.0-52.0) L Mean Corpuscular Volume 79 FL (80-99) L Mean Corpuscular Hemoglobin 23.3 PG (27.0-31.0) L Mean Corpuscular Hemoglobin Concent 29.6 G/DL (32.0-36.0) L Red Cell Distribution Width 20.3 % (11.6-14.8) H Platelet Count 97 K/UL (150-450) L Mean Platelet Volume 7.1 FL (6.5-10.1) Neutrophils (%) (Auto) % (45.0-75.0) Lymphocytes (%) (Auto) % (20.0-45.0) Monocytes (%) (Auto) % (1.0-10.0) Eosinophils (%) (Auto) % (0.0-3.0) Basophils (%) (Auto) % (0.0-2.0) Prothrombin Time 18.8 SEC (9.30-11.50) H Prothromb Time International Ratio 1.8 (0.9-1.1) H Activated Partial Thromboplast Time 40 SEC (23-33) H Sodium Level 149 MMOL/L (136-145) H Potassium Level 5.5 MMOL/L (3.5-5.1) H Chloride Level 107 MMOL/L (98-107) Carbon Dioxide Level 23 MMOL/L (21-32) Anion Gap 19 mmol/L (5-15) H Blood Urea Nitrogen 60 mg/dL (7-18) H Creatinine 9.7 MG/DL (0.55-1.30) H Estimat Glomerular Filtration Rate 6.9 mL/min (>60) Glucose Level 51 MG/DL (74-106) L 160 MG/DL (74-106) #H Lactic Acid Level 6.30 mmol/L (0.4-2.0) H 7.00 mmol/L (0.66-2.22) H Calcium Level 10.8 MG/DL (8.5-10.1) H Total Bilirubin 5.9 MG/DL (0.2-1.0) H Direct Bilirubin 3.9 MG/DL (0.0-0.3) H Aspartate Amino Transf (AST/SGOT) 105 U/L (15-37) H Alanine Aminotransferase (ALT/SGPT) 46 U/L (12-78) Alkaline Phosphatase 433 U/L (46-116) H Total Creatine Kinase 403 U/L (26-308) H Creatine Kinase MB 12.4 NG/ML (0.0-3.6) H Creatine Kinase MB Relative Index 3.0 Troponin I 8.507 ng/mL (0.000-0.056) Pro-B-Type Natriuretic Peptide > 13075 pg/mL (0-125) H Total Protein 8.0 G/DL (6.4-8.2) Albumin 2.7 G/DL (3.4-5.0) L Globulin 5.3 g/dL Albumin/Globulin Ratio 0.5 (1.0-2.7) L Arterial Blood pH 7.390 (7.350-7.450) Arterial Blood Partial Pressure CO2 32.1 mmHg (35.0-45.0) L Arterial Blood Partial Pressure O2 82.6 mmHg (75.0-100.0) Arterial Blood HCO3 19.0 mmol/L (22.0-26.0) L Arterial Blood Oxygen Saturation 94.7 % (95-100) L Arterial Blood Base Excess -5.3 (-2-2) L Dirk Test Positive Test 11/20/18 05:27 11/20/18 08:15 11/20/18 08:35 11/20/18 12:00 Arterial Blood pH 7.400 (7.350-7.450) 7.118 (7.350-7.450) Arterial Blood Partial Pressure CO2 25.4 mmHg (35.0-45.0) L 51.0 mmHg (35.0-45.0) H Arterial Blood Partial Pressure O2 71.7 mmHg (75.0-100.0) L 381.7 mmHg (75.0-100.0) H Arterial Blood HCO3 15.4 mmol/L (22.0-26.0) *L 16.1 mmol/L (22.0-26.0) *L Arterial Blood Oxygen Saturation 92.1 % (95-100) L 99.6 % (95-100) Arterial Blood Base Excess -8.3 (-2-2) L -12.7 (-2-2) *L Dirk Test Positive Positive Activated Partial Thromboplast Time 67 SEC (23-33) H 72 SEC (23-33) H Lactic Acid Level 10.60 mmol/L (0.4-2.0) H Ammonia 10 umol/L (11-32) L Troponin I 19.812 ng/mL (0.000-0.056) Thyroid Stimulating Hormone (TSH) 2.277 uiU/mL (0.358-3.740) Test 11/20/18 12:50 11/20/18 14:00 11/20/18 16:10 Arterial Blood pH 7.348 (7.350-7.450) Arterial Blood Partial Pressure CO2 30.1 mmHg (35.0-45.0) L Arterial Blood Partial Pressure O2 240.0 mmHg (75.0-100.0) H Arterial Blood HCO3 16.2 mmol/L (22.0-26.0) *L Arterial Blood Oxygen Saturation 99.6 % (95-100) Arterial Blood Base Excess -8.4 (-2-2) L Dirk Test Positive Sodium Level 145 MMOL/L (136-145) Potassium Level 4.9 MMOL/L (3.5-5.1) Chloride Level 106 MMOL/L (98-107) Carbon Dioxide Level 20 MMOL/L (21-32) L Anion Gap 20 mmol/L (5-15) H Blood Urea Nitrogen 79 mg/dL (7-18) H Creatinine 10.3 MG/DL (0.55-1.30) H Estimat Glomerular Filtration Rate 6.4 mL/min (>60) Glucose Level 171 MG/DL (74-106) H Lactic Acid Level 6.20 mmol/L (0.66-2.22) H Calcium Level 11.2 MG/DL (8.5-10.1) H Troponin I 32.069 ng/mL (0.000-0.056) Height (Feet): 6 Height (Inches): 0.00 Weight (Pounds): 188 Medications Current Medications Medications (Trade) Dose Ordered Sig/Jewel Route PRN Reason Start Time Stop Time Status Last Admin Dose Admin Acetaminophen (Tylenol) 650 mg Q4H PRN NG fever 11/20/18 16:00 12/20/18 15:59 11/20/18 16:31 Albuterol/ Ipratropium (Albuterol/ Ipratropium) 3 ml Q6H PRN HHN Shortness of Breath 11/20/18 05:15 11/25/18 05:14 Aspirin (ASA) 81 mg DAILY NG 11/20/18 09:00 12/20/18 08:59 Atorvastatin Calcium (Lipitor) 80 mg BEDTIME ORAL 11/20/18 21:00 12/20/18 20:59 Chlorhexidine Gluconate (Vandana-Hex 2%) 1 applic DAILY@2000 TOPIC 11/20/18 20:00 12/20/18 19:59 11/20/18 19:49 Dextrose 1,000 ml @ 75 mls/hr [id number] IV 11/20/18 18:15 12/20/18 18:14 11/20/18 18:15 Dextrose (Dextrose 50%) 50 ml Q30M PRN IV if BS<60 11/20/18 11:35 12/20/18 11:34 11/20/18 20:01 Heparin Sodium/ Dextrose 500 ml @ 21.01 mls/ hr ADJUST PER PROTOCOL IV 11/20/18 07:15 12/20/18 05:14 11/20/18 07:52 Morphine Sulfate (Morphine Sulfate) 1 mg Q3H PRN IVP For Pain 11/20/18 05:15 11/27/18 05:14 Norepinephrine Bitartrate 8 mg/ Dextrose 250 ml @ 0 mls/hr Q24H IV 11/20/18 10:00 12/20/18 09:59 11/20/18 18:28 Pantoprazole (Protonix) 40 mg DAILY IVP 11/20/18 09:00 12/20/18 08:59 11/20/18 09:06 Phenylephrine HCl 50 mg/Dextrose 250 ml @ 0 mls/hr Q24H IV 11/20/18 12:30 12/20/18 12:29 11/20/18 15:17 Piperacillin Sod/ Tazobactam Sod 2.25 gm/Dextrose 55 ml @ 110 mls/hr Q8H IVPB 11/20/18 10:00 11/27/18 09:59 11/20/18 17:05 Vancomycin HCl (Vanco rx to dose) 1 ea DAILY PRN MISC Per rx protocol 11/20/18 05:15 12/20/18 05:14 Objective Narrative General appearance: intubated and sedated Head: Normocephalic, without obvious abnormality, atraumatic Eyes: conjunctivae/corneas clear. Throat: ETT inplace Lungs: clear to auscultation bilaterally Heart: regular rate and rhythm, S1, S2 normal, no murmur, click, rub or gallop Abdomen: soft,Bowel sounds normal Extremities: extremities normal, atraumatic, no cyanosis or edema Pulses: 2+ and symmetric Skin: Skin color, texture, turgor normal. No rashes or lesions Neurologic: unable to assess Assessment/Plan Assessment/Plan: 53 M h/o ESRD (TTS), severe bioprosthetic S/P AVR, bioprosthetic IE, CHF, Devonte TAVR, seizure DO, CAD, HTN, HL, PSA was brought in by EMS from home after he was found unresponsive admitted to ICU for severe sepsis and NSTEMI #Septic shock possible 2/2 PNA #Acute metabolic encephalopathy 2/2 sepsis #Acute hypoxic respiratory failure s/p intubation -Cont ICU care -Pulmonary/crit care consult appreciated -Cont ACVC -Trend ABG -Cont Levo with goal map >65 -duonebs -trend LA -f/u cultures #NSTEMI -possible myocarditis -Trend troponins until peaked -Cardiology consult appreciated -ECHO (on pressors) reveiwed -will need cardiac cath once stable -tele monitorin h #ESRD on HD #Hyperkalemia -Nephrology consulted -Unstable for HD at this time -May need CVVHD #hypoglycemia -likely 2/2 septic shock -Cont D10 -monitor FSG Code: Flooring Machine Feeder of note may not reflect time of encounter Kassie Asencio MD Nov 20, 2018 20:57
[2018-11-20] MEDS: Atorvastatin 80mg tab ORAL SCH ×2 (21:00→22:34)
--- NOTE | 2018-11-20 21:00 | NUR ---
NURSE NOTES: Glucose check, critical low result. D50 IVP given.
--- NOTE | 2018-11-20 22:00 | NUR ---
NURSE NOTES: Glucose check, critical low result. D50 IVP given.
--- NOTE | 2018-11-20 23:20 | NUR ---
NURSE NOTES: Kept getting Different result on FSBS on Diff.fingers,Have Lab draw results-231.
[2018-11-20 23:49] LABS: ANION GAP 18 mmol/L (5-15); BLOOD UREA NITROGEN 85 mg/dL (7-18); CALCIUM 11.1 MG/DL (8.5-10.1); CARBON DIOXIDE 19 MMOL/L (21-32); CHLORIDE 101 MMOL/L (98-107); CREATININE 10.3 MG/DL (0.55-1.30); POTASSIUM 5.6 MMOL/L (3.5-5.1); SODIUM 138 MMOL/L (136-145)
[2018-11-21] VITALS (45 sets, daily range): BP systolic 68–115; BP diastolic 25–61
--- NOTE | 2018-11-21 00:16 | NUR ---
NURSE NOTES: Midnoc FSBS via earlobe puncture-188.Pos.chg.suctioned.Neuro status same.
[2018-11-21] MEDS: Phenylephrine 50 MG in D5W 245 ML IV SCH ×2 (01:38→06:05)
--- NOTE | 2018-11-21 02:00 | NUR ---
NURSE NOTES: Repositioned,suctioned.Neuro status same.FSBS-153.Cont.Plan of care.
[2018-11-21] MEDS: Piperacillin/Tazobactam 2.25 GM in D5W 55 ML IVPB SCH ×2 (02:25→10:00)
[2018-11-21] MEDS: Heparin 25,000u/D5W 500ml 500 ML IV SCH (03:40)
--- NOTE | 2018-11-21 04:00 | NUR ---
NURSE NOTES: See Latest FSBS.Cont.on D10W at 75cc/hr.Blood drwn for cbc/cmp etc.spec.to Lab.
[2018-11-21 04:32] LABS: HEMATOCRIT 26.4 % (42.0-52.0); HEMOGLOBIN 7.8 G/DL (14.2-18.0); MEAN CORPUSCULAR VOLUME 79 FL (80-99); PLATELET COUNT 34 K/UL (150-450); RED BLOOD COUNT 3.35 M/UL (4.70-6.10); RED CELL DISTRIBUTION WIDTH 19.9 % (11.6-14.8); WHITE BLOOD COUNT 17.7 K/UL (4.8-10.8)
[2018-11-21] MEDS: Acetaminophen 650mg/20.3ml NG PRN ×2 (04:42→08:53)
[2018-11-21 04:51] LABS: ANION GAP 20 mmol/L (5-15); BLOOD UREA NITROGEN 89 mg/dL (7-18); CALCIUM 11.1 MG/DL (8.5-10.1); CARBON DIOXIDE 16 MMOL/L (21-32); CHLORIDE 99 MMOL/L (98-107); CREATININE 10.5 MG/DL (0.55-1.30); SODIUM 134 MMOL/L (136-145)
--- NOTE | 2018-11-21 05:15 | NUR ---
RESPIRATORY NOTE: PT REMAINED STABLE ON CMV WITH CURRENT SETTINGS. PT WAS SX PRN WITH NO ADVERSE REACTION. AIRWAY IS SECURE AND PATENT. VENT CIRCUIT AND SX TUBING ARE SECURE AND OUT OF THE WAY. PT HR AND RR CONTINUE TO BE INCREASED.
[2018-11-21] MEDS ORDERED: Calcium Gluconate 1gm in NS 110ml IVPB SCH (06:00)
[2018-11-21] MEDS ORDERED: Calcium Gluconate 1gm/10ml vial IVP SCH (06:00)
[2018-11-21] MEDS ORDERED: Sodium Polystyrene Sulfonate 15gm Powder ORAL SCH (06:00)
[2018-11-21] MEDS ORDERED: Heparin 25,000u/D5W 500ml 500 ML IV SCH (06:30)
--- NOTE | 2018-11-21 07:00 | NUR ---
RESPIRATORY NOTE: Received patient on Vent settings ACVC RR 26, VT 600, FIO2 50%, PEEP +5. Patient intubated with a 7.5 ETT at 22 cm at the lip, secured with anchorfast. Suction small amount of thin clear secretions thorough ETT Q2 and PRN. Breath sounds are rhonchi bilaterally. Patient is obtundent. Alarms are on and audible. Vent plugged into red outlet. Will continue to monitor thought the day.
--- NOTE | 2018-11-21 07:25 | NUR ---
HAND-OFF: Report given to NAI HAUSER.
--- NOTE | 2018-11-21 07:45 | NUR ---
NURSE NOTES: Patient report from NAI Sinha at the bedside, upon assessment his pupils are sluggish reacting to penlight, gag reflex is hypoactive when suctioning and tannish secretions noted, no response with light or deep pain. ET-tube is at 23cm with 7.5, ventilator setting are AC26, TV: 600, FIo2 50% with peep of 5. patient is saturating at 98-99% with RR of 36. patient HR is 111 in sinus tachycardia, A TLC on the right femoral is being accessed for use of Levophed at 30mcg/min, Phenylephrine at 240mcg/min and D10 W at 75ml/hr, Heparin is running on a right forearm peripheral line at 8units/kg/hr, all lines are patient with no leaking or swelling noted, skin around the insertion site are clean and dry. An open wound noted next to the AV shunt which pink and white, it is covered with a bandage, A thrill and bruit is present. No urine output noted.
[2018-11-21] MEDS: Dextrose 10% 1,000 ML IV SCH (08:20)
--- NOTE | 2018-11-21 08:44 | Pulmonolgy Critical Care Note ---
Critical Care - Asmt/Plan Problems: (1) Severe sepsis (2) NSTEMI (non-ST elevated myocardial infarction) (3) End stage renal failure on dialysis (4) Congestive heart failure (5) Lactic acid acidosis (6) CHF (congestive heart failure) (7) Aortic stenosis, residual (8) Hyperkalemia (9) UTI (urinary tract infection) (10) Fluid overload (11) Thrombocytopenia Assessment/Plan: ABG AC 24 VC 600 Titrate down FiO2 to keep SaO2 > 90% HHN's Vanco/Zosyn (D2), would get IV eval F/U Cx's Trend LA Unstable for HD, needs CVVHD, ? transfer IVF per renal Taper NE and KEYLA to keep MAP > 60, add VASO 0.04 F/U cards recs F/U renal recs Continue IVUH Monitor for bleeding Check DIC labs PRN platelets and FFP Serial abdominal exams Consider CT CAP if/when stable F/U final DUPLEX, prelim neg Monitor MS FC, prognosis extremely poor Critical Care - Objective Last 24 Hour Vital Signs Date Time Temp Pulse Resp B/P (MAP) Pulse Ox O2 Delivery O2 Flow Rate FiO2 11/21/18 08:34 109 34 50 11/21/18 08:20 90/40 11/21/18 06:58 116 35 50 11/21/18 06:30 116 38 85/44 96 Mechanical Ventilator 50 11/21/18 06:28 117 38 81/42 98 11/21/18 06:15 118 35 79/49 100 11/21/18 06:08 115 37 80/41 99 11/21/18 06:05 116 68/25 11/21/18 06:01 117 35 68/25 99 11/21/18 06:00 117 36 11/21/18 05:51 115 38 76/39 11/21/18 05:46 116 37 75/39 11/21/18 05:45 117 37 68/39 100 11/21/18 05:30 119 38 83/43 96 11/21/18 05:15 99.5 11/21/18 05:15 119 34 83/43 100 11/21/18 05:15 118 34 50 11/21/18 05:00 118 34 82/35 99 11/21/18 04:45 121 33 89/41 100 Mechanical Ventilator 50 11/21/18 04:32 123 34 86/39 99 Mechanical Ventilator 50 11/21/18 04:30 120 35 83/48 100 Mechanical Ventilator 50 11/21/18 04:15 120 35 92/36 100 Mechanical Ventilator 50 11/21/18 04:00 Endotracheal Tube 11/21/18 04:00 121 11/21/18 04:00 100.9 121 37 85/38 97 Mechanical Ventilator 50 11/21/18 04:00 50 11/21/18 03:52 123 35 93/55 Mechanical Ventilator 50 11/21/18 03:45 121 35 96/42 93 Mechanical Ventilator 50 11/21/18 03:43 98/49 11/21/18 03:34 117 35 85/38 84 Mechanical Ventilator 50 11/21/18 03:30 128 37 72/33 96 Mechanical Ventilator 50 11/21/18 03:28 128 40 50 11/21/18 03:15 127 39 102/43 99 Mechanical Ventilator 50 11/21/18 03:00 130 40 104/48 98 Mechanical Ventilator 50 11/21/18 02:45 130 39 100/46 100 Mechanical Ventilator 50 11/21/18 02:30 131 39 96/49 100 Mechanical Ventilator 50 11/21/18 02:15 132 40 98/49 100 Mechanical Ventilator 50 11/21/18 02:00 133 39 99/44 100 Mechanical Ventilator 50 11/21/18 01:45 132 40 100/51 100 Mechanical Ventilator 50 11/21/18 01:38 114 95/41 11/21/18 01:30 133 39 103/47 100 Mechanical Ventilator 50 11/21/18 01:15 138 38 109/61 Mechanical Ventilator 50 11/21/18 01:11 114 40 50 11/21/18 01:00 135 39 87/49 Mechanical Ventilator 50 11/21/18 00:45 133 39 102/53 100 Mechanical Ventilator 50 11/21/18 00:30 133 36 95/56 100 Mechanical Ventilator 50 11/21/18 00:15 132 36 95/41 Mechanical Ventilator 50 11/21/18 00:00 Endotracheal Tube 11/21/18 00:00 132 11/21/18 00:00 50 11/21/18 00:00 100.4 132 35 115/50 Mechanical Ventilator 50 11/20/18 23:45 132 38 107/50 100 Mechanical Ventilator 50 11/20/18 23:30 129 35 107/49 100 Mechanical Ventilator 50 11/20/18 23:20 129 37 50 11/20/18 23:15 128 38 87/45 Mechanical Ventilator 50 11/20/18 23:02 128 35 91/44 Mechanical Ventilator 50 11/20/18 23:00 128 37 82/45 Mechanical Ventilator 50 11/20/18 23:00 91/46 11/20/18 22:45 129 38 91/46 Mechanical Ventilator 50 11/20/18 22:30 129 37 85/45 100 Mechanical Ventilator 50 11/20/18 22:15 129 36 96/44 100 Mechanical Ventilator 50 11/20/18 22:13 130 89/50 11/20/18 22:00 130 35 89/50 100 Mechanical Ventilator 50 11/20/18 22:00 89/50 11/20/18 21:45 127 38 93/45 100 Mechanical Ventilator 50 11/20/18 21:30 128 38 96/46 Mechanical Ventilator 50 11/20/18 21:20 130 37 50 11/20/18 21:17 128 34 98/41 100 Mechanical Ventilator 50 11/20/18 21:15 130 35 79/48 100 Mechanical Ventilator 50 11/20/18 21:00 79/48 11/20/18 21:00 128 37 94/46 100 Mechanical Ventilator 50 11/20/18 20:58 127 35 91/41 100 Mechanical Ventilator 50 11/20/18 20:49 128 38 73/44 Mechanical Ventilator 50 11/20/18 20:45 128 39 72/41 Mechanical Ventilator 50 11/20/18 20:30 128 38 81/44 Mechanical Ventilator 50 11/20/18 20:15 129 37 87/46 100 Mechanical Ventilator 50 11/20/18 20:00 130 11/20/18 20:00 Endotracheal Tube 11/20/18 20:00 87/46 11/20/18 20:00 50 11/20/18 20:00 101.6 130 31 91/49 100 Mechanical Ventilator 50 11/20/18 19:45 130 39 89/43 100 Mechanical Ventilator 50 11/20/18 19:30 128 37 90/46 100 Mechanical Ventilator 50 11/20/18 19:23 128 39 50 11/20/18 19:15 128 36 90/46 100 Mechanical Ventilator 50 11/20/18 19:00 131 37 83/44 100 Mechanical Ventilator 50 11/20/18 19:00 83/44 11/20/18 18:30 130 36 93/53 100 Mechanical Ventilator 50 11/20/18 18:28 91/47 11/20/18 18:00 94/46 11/20/18 18:00 50 11/20/18 18:00 130 37 94/46 93 Mechanical Ventilator 50 11/20/18 17:30 132 37 92/46 100 Mechanical Ventilator 50 11/20/18 17:00 119/87 11/20/18 17:00 102.4 130 39 119/87 100 Mechanical Ventilator 50 11/20/18 16:44 130 37 50 11/20/18 16:30 132 35 106/57 100 Mechanical Ventilator 50 11/20/18 16:00 132 11/20/18 16:00 102.4 133 33 104/56 100 Mechanical Ventilator 50 11/20/18 16:00 104/56 11/20/18 16:00 Endotracheal Tube 11/20/18 15:30 132 34 99/49 100 Mechanical Ventilator 50 11/20/18 15:17 132 72/47 11/20/18 15:00 133 32 83/44 100 Mechanical Ventilator 50 11/20/18 15:00 83/44 11/20/18 15:00 132 33 50 11/20/18 14:31 133 36 89/34 100 Mechanical Ventilator 50 11/20/18 14:00 135 33 84/41 100 Mechanical Ventilator 50 11/20/18 14:00 84/41 11/20/18 13:49 95/45 11/20/18 13:30 130 34 95/45 98 Mechanical Ventilator 50 11/20/18 13:05 134 38 40 11/20/18 13:00 133 34 110/57 98 Mechanical Ventilator 60 11/20/18 13:00 110/57 11/20/18 12:30 132 35 103/56 98 Mechanical Ventilator 60 11/20/18 12:00 130 11/20/18 12:00 110/42 11/20/18 12:00 99.0 131 33 110/42 100 Mechanical Ventilator 60 11/20/18 12:00 60 11/20/18 12:00 Endotracheal Tube 11/20/18 11:30 131 34 92/53 100 Mechanical Ventilator 60 11/20/18 11:00 131 30 60 11/20/18 11:00 89/46 11/20/18 11:00 131 33 108/48 100 Mechanical Ventilator 60 11/20/18 10:30 134 29 91/46 100 Mechanical Ventilator 100 11/20/18 10:00 133 27 102/50 100 Mechanical Ventilator 100 11/20/18 10:00 105/44 11/20/18 09:57 105/44 11/20/18 09:49 101/48 11/20/18 09:25 135 27 80 11/20/18 09:14 108/56 11/20/18 09:00 137 25 93/27 100 Mechanical Ventilator 100 Status: obtunded Condition: critical HEENT: atraumatic, normocephalic, other - ETT NGT Neck: other - 8 cm JVD Lungs: rhonchi Heart: HR/BP unstable Abdomen: soft, non-tender, active bowel sounds Extremities: no C/C/E Micro: Microbiology Date/Time Source Procedure Growth Status 11/20/18 00:15 Blood Blood Culture - Preliminary NO GROWTH AFTER 24 HOURS Resulted 11/20/18 00:00 Blood Blood Culture - Preliminary NO GROWTH AFTER 24 HOURS Resulted Accucheck: 114 Blood Sugars: BS controlled Critical Care - Subjective ROS Limited/Unobtainable: Yes ICU Day: 2 Intubation Day: 2 Interval Events: maxed out on pressors No UO K 7 S/P kayexelate WCt 17 plt 34 trop inc INR 150 Unresponsive Condition: critical IV Access: central - R fem D2 EKG Rhythm: Sinus Tachycardia FI02: 50 Vent Support Breath Rate: 26 Vent Support Mode: AC Vent Tidal Volume: 600 Sputum Amount: Scant PEEP: 5.0 PIP: 36 Secretions: No sig Fluids: D10W@75 Drips: NE 30 KEYLA 240 I&O: Intake and Output 11/20/18 11/21/18 19:00 07:00 Intake Total 1479.295 ml 3248.434 ml Output Total 0 ml 0 ml Balance 1479.295 ml 3248.434 ml Intake IV Total 1479.295 ml 3248.434 ml Output Urine Total 0 ml 0 ml Subjective: LANA CXR: B perihilar inf and mild PVC ET-Tube: 7.5 ET Position: 22 Labs: Laboratory Tests Test 11/20/18 12:00 11/20/18 12:50 11/20/18 14:00 11/20/18 16:10 Activated Partial Thromboplast Time 72 SEC (23-33) H Arterial Blood pH 7.348 (7.350-7.450) Arterial Blood Partial Pressure CO2 30.1 mmHg (35.0-45.0) L Arterial Blood Partial Pressure O2 240.0 mmHg (75.0-100.0) H Arterial Blood HCO3 16.2 mmol/L (22.0-26.0) *L Arterial Blood Oxygen Saturation 99.6 % (95-100) Arterial Blood Base Excess -8.4 (-2-2) L Dirk Test Positive Sodium Level 145 MMOL/L (136-145) Potassium Level 4.9 MMOL/L (3.5-5.1) Chloride Level 106 MMOL/L (98-107) Carbon Dioxide Level 20 MMOL/L (21-32) L Anion Gap 20 mmol/L (5-15) H Blood Urea Nitrogen 79 mg/dL (7-18) H Creatinine 10.3 MG/DL (0.55-1.30) H Estimat Glomerular Filtration Rate 6.4 mL/min (>60) Glucose Level 171 MG/DL (74-106) H Lactic Acid Level 6.20 mmol/L (0.66-2.22) H Calcium Level 11.2 MG/DL (8.5-10.1) H Troponin I 32.069 ng/mL (0.000-0.056) Test 11/20/18 21:45 11/20/18 23:15 11/21/18 00:00 11/21/18 04:00 Troponin I 33.816 ng/mL (0.000-0.056) 30.321 ng/mL (0.000-0.056) 36.774 ng/mL (0.000-0.056) Sodium Level 138 MMOL/L (136-145) 134 MMOL/L (136-145) L Potassium Level 5.6 MMOL/L (3.5-5.1) H 7.0 MMOL/L (3.5-5.1) *H Chloride Level 101 MMOL/L (98-107) 99 MMOL/L (98-107) Carbon Dioxide Level 19 MMOL/L (21-32) L 16 MMOL/L (21-32) L Anion Gap 18 mmol/L (5-15) H 20 mmol/L (5-15) H Blood Urea Nitrogen 85 mg/dL (7-18) H 89 mg/dL (7-18) H Creatinine 10.3 MG/DL (0.55-1.30) H 10.5 MG/DL (0.55-1.30) H Estimat Glomerular Filtration Rate 6.4 mL/min (>60) 6.3 mL/min (>60) Glucose Level 231 MG/DL (74-106) H 167 MG/DL (74-106) H Calcium Level 11.1 MG/DL (8.5-10.1) H 11.1 MG/DL (8.5-10.1) H White Blood Count 17.7 K/UL (4.8-10.8) #H Red Blood Count 3.35 M/UL (4.70-6.10) L Hemoglobin 7.8 G/DL (14.2-18.0) L Hematocrit 26.4 % (42.0-52.0) L Mean Corpuscular Volume 79 FL (80-99) L Mean Corpuscular Hemoglobin 23.5 PG (27.0-31.0) L Mean Corpuscular Hemoglobin Concent 29.7 G/DL (32.0-36.0) L Red Cell Distribution Width 19.9 % (11.6-14.8) H Platelet Count 34 K/UL (150-450) #L Mean Platelet Volume 10.3 FL (6.5-10.1) H Neutrophils (%) (Auto) % (45.0-75.0) Lymphocytes (%) (Auto) % (20.0-45.0) Monocytes (%) (Auto) % (1.0-10.0) Eosinophils (%) (Auto) % (0.0-3.0) Basophils (%) (Auto) % (0.0-2.0) Differential Total Cells Counted 100 Neutrophils % (Manual) 66 % (45-75) Lymphocytes % (Manual) 19 % (20-45) L Monocytes % (Manual) 13 % (1-10) H Eosinophils % (Manual) 0 % (0-3) Basophils % (Manual) 0 % (0-2) Band Neutrophils 2 % (0-8) Platelet Estimate Decreased L Platelet Morphology Normal Hypochromasia 1+ Poikilocytosis Anisocytosis 1+ Target Cells 1+ Camryn Cells 1+ Acanthocytes 1+ Activated Partial Thromboplast Time > 150 SEC (23-33) *H Valentin Smith MD Nov 21, 2018 08:44
--- NOTE | 2018-11-21 08:45 | NUR ---
NURSE NOTES: Dr. Smith at the bedside and updated status, he placed orders for lab work, breathing treatment made aware of abnormal labs, placed order for blood transfusion to be given. no further orders given at this time.
[2018-11-21] MEDS: Pantoprazole Inj IVP SCH (08:54)
[2018-11-21] MEDS: Aspirin Baby 81mg NG SCH (09:00)
[2018-11-21] MEDS ORDERED: PHENYLEPHRINE IV SCH (09:08)
[2018-11-21] MEDS ORDERED: D5W IV SCH (09:08)
--- NOTE | 2018-11-21 09:10 | NUR ---
NURSE NOTES: Dr. Hu updated of patient hgb of 7.8 and platelet count of 34, made aware of orders placed by Dr. Smith for blood transfusion, will review laboratory work and place orders.
--- NOTE | 2018-11-21 09:13 | Cardiology Progress Note ---
Assessment/Plan Status: stable Assessment/Plan Assessment/Plan Problem List: (1) Hyperkalemia (2) fluid overload (3) End stage renal disease on dialysis (4) Congestive heart failure (5) Encephalopathy (6) Severe sepsis (7) NSTEMI (non-ST elevated myocardial infarction) (8) hx of TAVR PLAN: Echocardiogram with normal LV function on pressors Would benefit from PA catheter Continue pressor support Add albumin to support intravascular volume Patient needs HD/CVVHD but unstable IV Abx empiric, follow cultures Continue to trend troponin Will need cardiac cath when stable to evaluate coronary anatomy Monitor on telemetry for arrhythmias Continue ventilator support Critical care 35 minutes Prognosis guarded/poor Subjective Cardiovascular: Reports: no symptoms Respiratory: Reports: no symptoms Gastrointestinal/Abdominal: Reports: no symptoms Genitourinary: Reports: no symptoms Subjective NO acute events, remains intubated and on pressors. Blood pressure low, tachycardic, potassium elevated. Troponin continues to rise Objective Last 24 Hour Vital Signs Date Time Temp Pulse Resp B/P (MAP) Pulse Ox O2 Delivery O2 Flow Rate FiO2 11/21/18 08:34 109 34 50 11/21/18 08:20 90/40 11/21/18 06:58 116 35 50 11/21/18 06:30 116 38 85/44 96 Mechanical Ventilator 50 11/21/18 06:28 117 38 81/42 98 11/21/18 06:15 118 35 79/49 100 11/21/18 06:08 115 37 80/41 99 11/21/18 06:05 116 68/25 11/21/18 06:01 117 35 68/25 99 11/21/18 06:00 117 36 11/21/18 05:51 115 38 76/39 11/21/18 05:46 116 37 75/39 11/21/18 05:45 117 37 68/39 100 11/21/18 05:30 119 38 83/43 96 11/21/18 05:15 99.5 11/21/18 05:15 119 34 83/43 100 11/21/18 05:15 118 34 50 11/21/18 05:00 118 34 82/35 99 11/21/18 04:45 121 33 89/41 100 Mechanical Ventilator 50 11/21/18 04:32 123 34 86/39 99 Mechanical Ventilator 50 11/21/18 04:30 120 35 83/48 100 Mechanical Ventilator 50 11/21/18 04:15 120 35 92/36 100 Mechanical Ventilator 50 11/21/18 04:00 Endotracheal Tube 11/21/18 04:00 121 11/21/18 04:00 100.9 121 37 85/38 97 Mechanical Ventilator 50 11/21/18 04:00 50 11/21/18 03:52 123 35 93/55 Mechanical Ventilator 50 11/21/18 03:45 121 35 96/42 93 Mechanical Ventilator 50 11/21/18 03:43 98/49 11/21/18 03:34 117 35 85/38 84 Mechanical Ventilator 50 11/21/18 03:30 128 37 72/33 96 Mechanical Ventilator 50 11/21/18 03:28 128 40 50 11/21/18 03:15 127 39 102/43 99 Mechanical Ventilator 50 11/21/18 03:00 130 40 104/48 98 Mechanical Ventilator 50 11/21/18 02:45 130 39 100/46 100 Mechanical Ventilator 50 11/21/18 02:30 131 39 96/49 100 Mechanical Ventilator 50 11/21/18 02:15 132 40 98/49 100 Mechanical Ventilator 50 11/21/18 02:00 133 39 99/44 100 Mechanical Ventilator 50 11/21/18 01:45 132 40 100/51 100 Mechanical Ventilator 50 11/21/18 01:38 114 95/41 11/21/18 01:30 133 39 103/47 100 Mechanical Ventilator 50 11/21/18 01:15 138 38 109/61 Mechanical Ventilator 50 11/21/18 01:11 114 40 50 11/21/18 01:00 135 39 87/49 Mechanical Ventilator 50 11/21/18 00:45 133 39 102/53 100 Mechanical Ventilator 50 11/21/18 00:30 133 36 95/56 100 Mechanical Ventilator 50 11/21/18 00:15 132 36 95/41 Mechanical Ventilator 50 11/21/18 00:00 Endotracheal Tube 11/21/18 00:00 132 11/21/18 00:00 50 11/21/18 00:00 100.4 132 35 115/50 Mechanical Ventilator 50 11/20/18 23:45 132 38 107/50 100 Mechanical Ventilator 50 11/20/18 23:30 129 35 107/49 100 Mechanical Ventilator 50 11/20/18 23:20 129 37 50 11/20/18 23:15 128 38 87/45 Mechanical Ventilator 50 11/20/18 23:02 128 35 91/44 Mechanical Ventilator 50 11/20/18 23:00 128 37 82/45 Mechanical Ventilator 50 11/20/18 23:00 91/46 11/20/18 22:45 129 38 91/46 Mechanical Ventilator 50 11/20/18 22:30 129 37 85/45 100 Mechanical Ventilator 50 11/20/18 22:15 129 36 96/44 100 Mechanical Ventilator 50 11/20/18 22:13 130 89/50 11/20/18 22:00 130 35 89/50 100 Mechanical Ventilator 50 11/20/18 22:00 89/50 11/20/18 21:45 127 38 93/45 100 Mechanical Ventilator 50 11/20/18 21:30 128 38 96/46 Mechanical Ventilator 50 11/20/18 21:20 130 37 50 11/20/18 21:17 128 34 98/41 100 Mechanical Ventilator 50 11/20/18 21:15 130 35 79/48 100 Mechanical Ventilator 50 11/20/18 21:00 79/48 11/20/18 21:00 128 37 94/46 100 Mechanical Ventilator 50 11/20/18 20:58 127 35 91/41 100 Mechanical Ventilator 50 11/20/18 20:49 128 38 73/44 Mechanical Ventilator 50 11/20/18 20:45 128 39 72/41 Mechanical Ventilator 50 11/20/18 20:30 128 38 81/44 Mechanical Ventilator 50 11/20/18 20:15 129 37 87/46 100 Mechanical Ventilator 50 11/20/18 20:00 130 11/20/18 20:00 Endotracheal Tube 11/20/18 20:00 87/46 11/20/18 20:00 50 11/20/18 20:00 101.6 130 31 91/49 100 Mechanical Ventilator 50 11/20/18 19:45 130 39 89/43 100 Mechanical Ventilator 50 11/20/18 19:30 128 37 90/46 100 Mechanical Ventilator 50 11/20/18 19:23 128 39 50 11/20/18 19:15 128 36 90/46 100 Mechanical Ventilator 50 11/20/18 19:00 131 37 83/44 100 Mechanical Ventilator 50 11/20/18 19:00 83/44 11/20/18 18:30 130 36 93/53 100 Mechanical Ventilator 50 11/20/18 18:28 91/47 11/20/18 18:00 94/46 11/20/18 18:00 50 11/20/18 18:00 130 37 94/46 93 Mechanical Ventilator 50 11/20/18 17:30 132 37 92/46 100 Mechanical Ventilator 50 11/20/18 17:00 119/87 11/20/18 17:00 102.4 130 39 119/87 100 Mechanical Ventilator 50 11/20/18 16:44 130 37 50 11/20/18 16:30 132 35 106/57 100 Mechanical Ventilator 50 11/20/18 16:00 132 11/20/18 16:00 102.4 133 33 104/56 100 Mechanical Ventilator 50 11/20/18 16:00 104/56 11/20/18 16:00 Endotracheal Tube 11/20/18 15:30 132 34 99/49 100 Mechanical Ventilator 50 11/20/18 15:17 132 72/47 11/20/18 15:00 133 32 83/44 100 Mechanical Ventilator 50 11/20/18 15:00 83/44 11/20/18 15:00 132 33 50 11/20/18 14:31 133 36 89/34 100 Mechanical Ventilator 50 11/20/18 14:00 135 33 84/41 100 Mechanical Ventilator 50 11/20/18 14:00 84/41 11/20/18 13:49 95/45 11/20/18 13:30 130 34 95/45 98 Mechanical Ventilator 50 11/20/18 13:05 134 38 40 11/20/18 13:00 133 34 110/57 98 Mechanical Ventilator 60 11/20/18 13:00 110/57 11/20/18 12:30 132 35 103/56 98 Mechanical Ventilator 60 11/20/18 12:00 130 11/20/18 12:00 110/42 11/20/18 12:00 99.0 131 33 110/42 100 Mechanical Ventilator 60 11/20/18 12:00 60 11/20/18 12:00 Endotracheal Tube 11/20/18 11:30 131 34 92/53 100 Mechanical Ventilator 60 11/20/18 11:00 131 30 60 11/20/18 11:00 89/46 11/20/18 11:00 131 33 108/48 100 Mechanical Ventilator 60 11/20/18 10:30 134 29 91/46 100 Mechanical Ventilator 100 11/20/18 10:00 133 27 102/50 100 Mechanical Ventilator 100 11/20/18 10:00 105/44 11/20/18 09:57 105/44 11/20/18 09:49 101/48 11/20/18 09:25 135 27 80 11/20/18 09:14 108/56 General Appearance: lethargic, on vent EENT: PERRL/EOMI, normal ENT inspection, TMs normal, pharynx normal Neck: non-tender, normal alignment, supple, normal inspection, JVD Rhythm: ST Cardiovascular: normal peripheral pulses, regular rhythm, tachycardia Respiratory/Chest: accessory muscle use, crackles/rales, rhonchi - bilaterally Abdomen: normal bowel sounds, non tender, soft, no organomegaly Extremities: normal range of motion, non-tender, normal inspection 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, disoriented, unresponsiveness Intake and Output 11/20/18 11/21/18 19:00 07:00 Intake Total 1479.295 ml 3248.434 ml Output Total 0 ml 0 ml Balance 1479.295 ml 3248.434 ml Intake IV Total 1479.295 ml 3248.434 ml Output Urine Total 0 ml 0 ml Laboratory Tests Test 11/20/18 12:00 11/20/18 12:50 11/20/18 14:00 11/20/18 16:10 Activated Partial Thromboplast Time 72 SEC (23-33) H Arterial Blood pH 7.348 (7.350-7.450) Arterial Blood Partial Pressure CO2 30.1 mmHg (35.0-45.0) L Arterial Blood Partial Pressure O2 240.0 mmHg (75.0-100.0) H Arterial Blood HCO3 16.2 mmol/L (22.0-26.0) *L Arterial Blood Oxygen Saturation 99.6 % (95-100) Arterial Blood Base Excess -8.4 (-2-2) L Dirk Test Positive Sodium Level 145 MMOL/L (136-145) Potassium Level 4.9 MMOL/L (3.5-5.1) Chloride Level 106 MMOL/L (98-107) Carbon Dioxide Level 20 MMOL/L (21-32) L Anion Gap 20 mmol/L (5-15) H Blood Urea Nitrogen 79 mg/dL (7-18) H Creatinine 10.3 MG/DL (0.55-1.30) H Estimat Glomerular Filtration Rate 6.4 mL/min (>60) Glucose Level 171 MG/DL (74-106) H Lactic Acid Level 6.20 mmol/L (0.66-2.22) H Calcium Level 11.2 MG/DL (8.5-10.1) H Troponin I 32.069 ng/mL (0.000-0.056) Test 11/20/18 21:45 11/20/18 23:15 11/21/18 00:00 11/21/18 04:00 Troponin I 33.816 ng/mL (0.000-0.056) 30.321 ng/mL (0.000-0.056) 36.774 ng/mL (0.000-0.056) Sodium Level 138 MMOL/L (136-145) 134 MMOL/L (136-145) L Potassium Level 5.6 MMOL/L (3.5-5.1) H 7.0 MMOL/L (3.5-5.1) *H Chloride Level 101 MMOL/L (98-107) 99 MMOL/L (98-107) Carbon Dioxide Level 19 MMOL/L (21-32) L 16 MMOL/L (21-32) L Anion Gap 18 mmol/L (5-15) H 20 mmol/L (5-15) H Blood Urea Nitrogen 85 mg/dL (7-18) H 89 mg/dL (7-18) H Creatinine 10.3 MG/DL (0.55-1.30) H 10.5 MG/DL (0.55-1.30) H Estimat Glomerular Filtration Rate 6.4 mL/min (>60) 6.3 mL/min (>60) Glucose Level 231 MG/DL (74-106) H 167 MG/DL (74-106) H Calcium Level 11.1 MG/DL (8.5-10.1) H 11.1 MG/DL (8.5-10.1) H White Blood Count 17.7 K/UL (4.8-10.8) #H Red Blood Count 3.35 M/UL (4.70-6.10) L Hemoglobin 7.8 G/DL (14.2-18.0) L Hematocrit 26.4 % (42.0-52.0) L Mean Corpuscular Volume 79 FL (80-99) L Mean Corpuscular Hemoglobin 23.5 PG (27.0-31.0) L Mean Corpuscular Hemoglobin Concent 29.7 G/DL (32.0-36.0) L Red Cell Distribution Width 19.9 % (11.6-14.8) H Platelet Count 34 K/UL (150-450) #L Mean Platelet Volume 10.3 FL (6.5-10.1) H Neutrophils (%) (Auto) % (45.0-75.0) Lymphocytes (%) (Auto) % (20.0-45.0) Monocytes (%) (Auto) % (1.0-10.0) Eosinophils (%) (Auto) % (0.0-3.0) Basophils (%) (Auto) % (0.0-2.0) Differential Total Cells Counted 100 Neutrophils % (Manual) 66 % (45-75) Lymphocytes % (Manual) 19 % (20-45) L Monocytes % (Manual) 13 % (1-10) H Eosinophils % (Manual) 0 % (0-3) Basophils % (Manual) 0 % (0-2) Band Neutrophils 2 % (0-8) Platelet Estimate Decreased L Platelet Morphology Normal Hypochromasia 1+ Poikilocytosis Anisocytosis 1+ Target Cells 1+ Camryn Cells 1+ Acanthocytes 1+ Activated Partial Thromboplast Time > 150 SEC (23-33) *H Microbiology Date/Time Source Procedure Growth Status 11/20/18 00:15 Blood Blood Culture - Preliminary NO GROWTH AFTER 24 HOURS Resulted 11/20/18 00:00 Blood Blood Culture - Preliminary NO GROWTH AFTER 24 HOURS Resulted Leo Knight MD Nov 21, 2018 09:13
--- NOTE | 2018-11-21 09:20 | NUR ---
NURSE NOTES: Blood samples collected and sent for analysis with emergency care attendant, awaiting for results,
--- NOTE | 2018-11-21 09:32 | NUR ---
NURSE NOTES: Patient Heart rate noted to decrease from 110 to 65 within 10-15seconds, returned to sinus tachycardia at 104 with wide QRS noted on the desk monitor. Heart rate is noted to decrease to 56 then heart rate went to 0 asystole on the bedside desk monitor. code blue initiated and compression started, see code blue sheet.
[2018-11-21] MEDS ORDERED: Amiodarone 150mg/3ml Amp ONE (09:54)
[2018-11-21] MEDS ORDERED: Calcium Chloride 100mg/ml Vial ONE (09:54)
[2018-11-21] MEDS ORDERED: Lidocaine 2% 100mg/5ml Carp ONE (09:54)
[2018-11-21] MEDS ORDERED: Sodium Bicarbonate 50ml Carp ONE (09:54)
[2018-11-21] MEDS ORDERED: Zemuron 50mg/5ml Inj IV ONE (09:54)
[2018-11-21] MEDS ORDERED: Etomidate 40mg/20ml Inj IV ONE (09:54)
--- NOTE | 2018-11-21 09:54 | Nephrology Progress Note ---
Assessment/Plan Problem List: (1) Hyperkalemia (2) fluid overload (3) End stage renal disease on dialysis (4) Congestive heart failure (5) Encephalopathy (6) Severe sepsis (7) NSTEMI (non-ST elevated myocardial infarction) Subjective ROS Limited/Unobtainable: Yes Subjective was not able to initiate HD due to profound hypotension, now on multiple pressors worsening acidosis and hyperkalemia Objective Objective Last 24 Hour Vital Signs Date Time Temp Pulse Resp B/P (MAP) Pulse Ox O2 Delivery O2 Flow Rate FiO2 11/21/18 08:34 109 34 50 11/21/18 08:20 90/40 11/21/18 06:58 116 35 50 11/21/18 06:30 116 38 85/44 96 Mechanical Ventilator 50 11/21/18 06:28 117 38 81/42 98 11/21/18 06:15 118 35 79/49 100 11/21/18 06:08 115 37 80/41 99 11/21/18 06:05 116 68/25 11/21/18 06:01 117 35 68/25 99 11/21/18 06:00 117 36 11/21/18 05:51 115 38 76/39 11/21/18 05:46 116 37 75/39 11/21/18 05:45 117 37 68/39 100 11/21/18 05:30 119 38 83/43 96 11/21/18 05:15 99.5 11/21/18 05:15 119 34 83/43 100 11/21/18 05:15 118 34 50 11/21/18 05:00 118 34 82/35 99 11/21/18 04:45 121 33 89/41 100 Mechanical Ventilator 50 11/21/18 04:32 123 34 86/39 99 Mechanical Ventilator 50 11/21/18 04:30 120 35 83/48 100 Mechanical Ventilator 50 11/21/18 04:15 120 35 92/36 100 Mechanical Ventilator 50 11/21/18 04:00 Endotracheal Tube 11/21/18 04:00 121 11/21/18 04:00 100.9 121 37 85/38 97 Mechanical Ventilator 50 11/21/18 04:00 50 11/21/18 03:52 123 35 93/55 Mechanical Ventilator 50 11/21/18 03:45 121 35 96/42 93 Mechanical Ventilator 50 11/21/18 03:43 98/49 7/30/19 03:34 117 35 85/38 84 Mechanical Ventilator 50 11/21/18 03:30 128 37 72/33 96 Mechanical Ventilator 50 11/21/18 03:28 128 40 50 11/21/18 03:15 127 39 102/43 99 Mechanical Ventilator 50 11/21/18 03:00 130 40 104/48 98 Mechanical Ventilator 50 11/21/18 02:45 130 39 100/46 100 Mechanical Ventilator 50 11/21/18 02:30 131 39 96/49 100 Mechanical Ventilator 50 11/21/18 02:15 132 40 98/49 100 Mechanical Ventilator 50 11/21/18 02:00 133 39 99/44 100 Mechanical Ventilator 50 11/21/18 01:45 132 40 100/51 100 Mechanical Ventilator 50 11/21/18 01:38 114 95/41 11/21/18 01:30 133 39 103/47 100 Mechanical Ventilator 50 11/21/18 01:15 138 38 109/61 Mechanical Ventilator 50 11/21/18 01:11 114 40 50 11/21/18 01:00 135 39 87/49 Mechanical Ventilator 50 11/21/18 00:45 133 39 102/53 100 Mechanical Ventilator 50 11/21/18 00:30 133 36 95/56 100 Mechanical Ventilator 50 11/21/18 00:15 132 36 95/41 Mechanical Ventilator 50 11/21/18 00:00 Endotracheal Tube 11/21/18 00:00 132 11/21/18 00:00 50 11/21/18 00:00 100.4 132 35 115/50 Mechanical Ventilator 50 11/20/18 23:45 132 38 107/50 100 Mechanical Ventilator 50 11/20/18 23:30 129 35 107/49 100 Mechanical Ventilator 50 11/20/18 23:20 129 37 50 11/20/18 23:15 128 38 87/45 Mechanical Ventilator 50 11/20/18 23:02 128 35 91/44 Mechanical Ventilator 50 11/20/18 23:00 128 37 82/45 Mechanical Ventilator 50 11/20/18 23:00 91/46 11/20/18 22:45 129 38 91/46 Mechanical Ventilator 50 11/20/18 22:30 129 37 85/45 100 Mechanical Ventilator 50 11/20/18 22:15 129 36 96/44 100 Mechanical Ventilator 50 7/29/19 22:13 130 89/50 11/20/18 22:00 130 35 89/50 100 Mechanical Ventilator 50 11/20/18 22:00 89/50 11/20/18 21:45 127 38 93/45 100 Mechanical Ventilator 50 11/20/18 21:30 128 38 96/46 Mechanical Ventilator 50 11/20/18 21:20 130 37 50 11/20/18 21:17 128 34 98/41 100 Mechanical Ventilator 50 11/20/18 21:15 130 35 79/48 100 Mechanical Ventilator 50 11/20/18 21:00 79/48 11/20/18 21:00 128 37 94/46 100 Mechanical Ventilator 50 11/20/18 20:58 127 35 91/41 100 Mechanical Ventilator 50 11/20/18 20:49 128 38 73/44 Mechanical Ventilator 50 11/20/18 20:45 128 39 72/41 Mechanical Ventilator 50 11/20/18 20:30 128 38 81/44 Mechanical Ventilator 50 11/20/18 20:15 129 37 87/46 100 Mechanical Ventilator 50 11/20/18 20:00 130 11/20/18 20:00 Endotracheal Tube 11/20/18 20:00 87/46 11/20/18 20:00 50 11/20/18 20:00 101.6 130 31 91/49 100 Mechanical Ventilator 50 11/20/18 19:45 130 39 89/43 100 Mechanical Ventilator 50 11/20/18 19:30 128 37 90/46 100 Mechanical Ventilator 50 11/20/18 19:23 128 39 50 11/20/18 19:15 128 36 90/46 100 Mechanical Ventilator 50 11/20/18 19:00 131 37 83/44 100 Mechanical Ventilator 50 11/20/18 19:00 83/44 11/20/18 18:30 130 36 93/53 100 Mechanical Ventilator 50 11/20/18 18:28 91/47 11/20/18 18:00 94/46 11/20/18 18:00 50 11/20/18 18:00 130 37 94/46 93 Mechanical Ventilator 50 11/20/18 17:30 132 37 92/46 100 Mechanical Ventilator 50 11/20/18 17:00 119/87 11/20/18 17:00 102.4 130 39 119/87 100 Mechanical Ventilator 50 11/20/18 16:44 130 37 50 11/20/18 16:30 132 35 106/57 100 Mechanical Ventilator 50 11/20/18 16:00 132 11/20/18 16:00 102.4 133 33 104/56 100 Mechanical Ventilator 50 11/20/18 16:00 104/56 11/20/18 16:00 Endotracheal Tube 11/20/18 15:30 132 34 99/49 100 Mechanical Ventilator 50 11/20/18 15:17 132 72/47 11/20/18 15:00 133 32 83/44 100 Mechanical Ventilator 50 11/20/18 15:00 83/44 11/20/18 15:00 132 33 50 11/20/18 14:31 133 36 89/34 100 Mechanical Ventilator 50 11/20/18 14:00 135 33 84/41 100 Mechanical Ventilator 50 11/20/18 14:00 84/41 11/20/18 13:49 95/45 11/20/18 13:30 130 34 95/45 98 Mechanical Ventilator 50 11/20/18 13:05 134 38 40 11/20/18 13:00 133 34 110/57 98 Mechanical Ventilator 60 11/20/18 13:00 110/57 11/20/18 12:30 132 35 103/56 98 Mechanical Ventilator 60 11/20/18 12:00 130 11/20/18 12:00 110/42 11/20/18 12:00 99.0 131 33 110/42 100 Mechanical Ventilator 60 11/20/18 12:00 60 11/20/18 12:00 Endotracheal Tube 11/20/18 11:30 131 34 92/53 100 Mechanical Ventilator 60 11/20/18 11:00 131 30 60 11/20/18 11:00 89/46 11/20/18 11:00 131 33 108/48 100 Mechanical Ventilator 60 11/20/18 10:30 134 29 91/46 100 Mechanical Ventilator 100 11/20/18 10:00 133 27 102/50 100 Mechanical Ventilator 100 11/20/18 10:00 105/44 11/20/18 09:57 105/44 Intake and Output 11/20/18 11/21/18 19:00 07:00 Intake Total 1479.295 ml 3248.434 ml Output Total 0 ml 0 ml Balance 1479.295 ml 3248.434 ml Intake IV Total 1479.295 ml 3248.434 ml Output Urine Total 0 ml 0 ml Laboratory Tests 11/20/18 12:00: Activated Partial Thromboplast Time 72H 11/20/18 12:50: Arterial Blood pH 7.348L, Arterial Blood Partial Pressure CO2 30.1L, Arterial Blood Partial Pressure O2 240.0H, Arterial Blood HCO3 16.2*L, Arterial Blood Oxygen Saturation 99.6, Arterial Blood Base Excess -8.4L, Dirk Test Positive 11/20/18 14:00: Sodium Level 145, Potassium Level 4.9, Chloride Level 106, Carbon Dioxide Level 20L, Anion Gap 20H, Blood Urea Nitrogen 79H, Creatinine 10.3H, Estimat Glomerular Filtration Rate 6.4, Glucose Level 171H, Lactic Acid Level 6.20H, Calcium Level 11.2H 11/20/18 16:10: Troponin I 32.069H 11/20/18 21:45: Troponin I 33.816H 11/20/18 23:15: Sodium Level 138, Potassium Level 5.6H, Chloride Level 101, Carbon Dioxide Level 19L, Anion Gap 18H, Blood Urea Nitrogen 85H, Creatinine 10.3H, Estimat Glomerular Filtration Rate 6.4, Glucose Level 231H, Calcium Level 11.1H 11/21/18 00:00: Troponin I 30.321H 11/21/18 04:00: Troponin I 36.774H, Sodium Level 134L, Potassium Level 7.0*H, Chloride Level 99 , Carbon Dioxide Level 16L, Anion Gap 20H, Blood Urea Nitrogen 89H, Creatinine 10.5H, Estimat Glomerular Filtration Rate 6.3, Glucose Level 167H, Calcium Level 11.1H, White Blood Count 17.7#H, Red Blood Count 3.35L, Hemoglobin 7.8L, Hematocrit 26.4L, Mean Corpuscular Volume 79L, Mean Corpuscular Hemoglobin 23.5L , Mean Corpuscular Hemoglobin Concent 29.7L, Red Cell Distribution Width 19.9H, Platelet Count 34#L, Mean Platelet Volume 10.3H, Neutrophils (%) (Auto) , Lymphocytes (%) (Auto) , Monocytes (%) (Auto) , Eosinophils (%) (Auto) , Basophils (%) (Auto) , Differential Total Cells Counted 100, Neutrophils % ( Manual) 66, Lymphocytes % (Manual) 19L, Monocytes % (Manual) 13H, Eosinophils % (Manual) 0, Basophils % (Manual) 0, Band Neutrophils 2, Platelet Estimate DecreasedL, Platelet Morphology Normal, Hypochromasia 1+, Poikilocytosis , Anisocytosis 1+, Target Cells 1+, Concrete Cells 1+, Acanthocytes 1+, Activated Partial Thromboplast Time > 150*H 11/21/18 09:30: Activated Partial Thromboplast Time [Pending], Fibrin Degradation Products, Quant [Pending], D-Dimer [Pending], Troponin I [Pending] Height (Feet): 6 Height (Inches): 0.00 Weight (Pounds): 188 Orin Mar M.D. Nov 21, 2018 09:54
--- NOTE | 2018-11-21 09:55 | NUR ---
NURSE NOTES: Patient and pronounced by Dr. Luis M Cook covering for Dr. Luis M Quiñones called brother, SANG Cm to inform of patient passing.
--- NOTE | 2018-11-21 10:07 | Emergency Room Report ---
History of Present Illness General Chief Complaint: Altered Mental Status Source: Family Member, Medical Record, EMS Present Illness Allergies: Coded Allergies: COCAINE (Verified Allergy, Intermediate, Hives, 10/22/14) Nursing Documentation-PMH Past Medical History: No History, Except For Hx Cardiac Problems: Yes Hx Hypertension: Yes Hx Pacemaker: No - CRF Hx COPD: No - CHF Hx Cancer: No Hx Gastrointestinal Problems: Yes Hx Dialysis: Yes - ,,Tuesday Hx Neurological Problems: Yes Hx Cerebrovascular Accident: Yes - 2008 with Left sided weakness Hx Seizures: Yes - 2008 Hx Dizziness: Yes Hx Weakness: Yes Hx Fatigue: Yes Physical Exam Vital Signs Date Time Temp Pulse Resp B/P (MAP) Pulse Ox O2 Delivery O2 Flow Rate FiO2 11/19/18 23:57 98.2 89 18 147/62 (90) 99 Room Air 11/20/18 01:30 2.0 11/20/18 07:03 100 Procedures CPR/Code Blue CPR/Code Blue Narrative I was called for bradycardia asystolic arrest. Patient was noted to have prior history of recent myocardial injury as well as renal failure. He was unable to be dialyzed. See code sheet for full medications and treatment. Patient was given multiple medications and defibrillated x1. Patient was noted to have brief episode of ventricular fibrillation. Patient was subsequently noted to have degenerated to asystole. Patient was pronounced at 9:55 AM. Family was notified by primary care physician was at the bedside. Medical Decision Making Diagnostic Impression: Primary Impression: End stage renal failure on dialysis Additional Impressions: Hypoglycemia Severe sepsis Encephalopathy NSTEMI (non-ST elevated myocardial infarction) Last Vital Signs Date Time Temp Pulse Resp B/P (MAP) Pulse Ox O2 Delivery O2 Flow Rate FiO2 11/21/18 08:34 109 34 50 11/21/18 08:20 90/40 11/21/18 06:30 96 Mechanical Ventilator 11/21/18 05:15 99.5 11/20/18 07:00 2.0 Disposition: SHORT-TERM HOSP Condition: Critical Referrals: NOT CHOSEN IPA/,REFERRING (PCP) David Mcconnell MD Nov 21, 2018 10:07
--- NOTE | 2018-11-21 10:31 | NUR ---
NURSE NOTES: [facility] called and spoke with Mame, Reference Number is [id number], concluded patient is not a candidate for organ harvesting and can be released to the family.
--- NOTE | 2018-11-21 11:21 | NUR ---
[employer]NA[employer] SI: RESP FAILURE ETT/VENT SUPPORT,HYPOGLYCEMIA,ESRD T. 100.9 HR 130 RR 37 B/P 85/38 AC 26 TV 600 FIO2 50% PEEP 5 IS: IVF D5@75ML/HR HEPARIN GTT VANCO IV PROTONIX IV ICU STATUS
[2018-11-21] MEDS ORDERED: NS 275ml ONE (14:09)
[2018-11-21] MEDS ORDERED: Tubing IV Secondary IV ONE (14:09)
[2018-11-21] MEDS ORDERED: Atorvastatin 80mg tab NG SCH (21:00)
--- NOTE | 2018-11-22 08:56 | Diagnostic Imaging Report ---
APPROVED REPORT CPT Code: 28037 Present Symptoms Shortness of breath BILATERAL: Imaging reveals a patent deep venous system bilaterally. There is no evidence of thrombus within the common femoral, superficial femoral, popliteal or tibial segments. The greater saphenous veins are within normal limits. Doppler indicates normal spontaneous flow within these segments
--- NOTE | 2018-11-23 21:36 | Discharge Summary ---
Discharge Summary Hospital Course Date of Admission Nov 20, 2018 at 00:25 Date of Discharge Nov 21, 2018 at 09:55 Admitting Diagnosis hypoglycemia/ESRD/ams HPI Cliff Rosa is a 53 year old male who was admitted on Nov 20, 2018 at 00:25 for Hypoglycemia/End Stage Renal Disease Hospital Course 53 M h/o ESRD (TTS), severe bioprosthetic S/P AVR, bioprosthetic IE, CHF, Devonte TAVR, seizure DO, CAD, HTN, HL, PSA was brought in by EMS from home after he was found unresponsive admitted to ICU for severe sepsis and NSTEMI. Pt was admitted to MICU for treatment of severe septic shock and acute hypoxic respiratory railure. Pt was intubated for airway protection, pressors were needed for BP support. Due to low blood pressure pt was unable to be dialyzed, hyperkalemia was treated with kayexalate, insulin and albuterol. On 11/21/18 pt noted to be bradycardic then asystole, chest compressions started, after 5 rounds, decision was to stop due to poor prognosis. Pt pronounced at 09:55am, brother was contacted. Discharge Discharge Disposition Patient Kassie Asencio MD Nov 23, 2018 21:36
== END 2018-11-21 09:55 | disposition expired | DRG 871 ==
LOC: EDBD 23:58 → EMR 11-20 00:11 → ICU 11-20 00:25 → EDBEDREQSVC 11-20 01:05 → EDBEDREQ 11-20 03:34
PROC: 5A1945Z Respiratory Ventilation, 24-96 Consecutive Hours (ICD-10-PCS; principal; 2018-11-20)
PROC: 06HM33Z Insertion of Infusion Device into Right Femoral Vein, Percutaneous Approach (ICD-10-PCS; principal; 2018-11-20)
PROC: 0BH17EZ Insertion of Endotracheal Airway into Trachea, Via Natural or Artificial Opening (ICD-10-PCS; principal; 2018-11-20)
DX: A41.9 Sepsis, unspecified organism (principal); R65.21 Severe sepsis with septic shock; G93.41 Metabolic encephalopathy; I21.4 Non-ST elevation (NSTEMI) myocardial infarction; N18.6 End stage renal disease; J96.01 Acute respiratory failure with hypoxia; I13.2 Hypertensive heart and chronic kidney disease with heart failure and with stage 5 chronic kidney disease, or end stage renal disease; I46.9 Cardiac arrest, cause unspecified; I50.9 Heart failure, unspecified; E87.5 Hyperkalemia; Z99.2 Dependence on renal dialysis; Z95.4 Presence of other heart-valve replacement; G40.909 Epilepsy, unspecified, not intractable, without status epilepticus; E16.2 Hypoglycemia, unspecified; Z79.82 Long term (current) use of aspirin; E87.70 Fluid overload, unspecified; I35.0 Nonrheumatic aortic (valve) stenosis; D69.6 Thrombocytopenia, unspecified
CPT/HCPCS: 36415; 36600; 70450; 71045; 74018; 80048; 80053; 82140; 82248; 82550; 82553; 82803; 82947; 82962; 83605; 83880; 84443; 84484; 85007; 85025; 85362; 85379; 85610; 85730; 87040; 87081; 87181; 92950; 93005; 93306; 93970; 94002; 94003; 94664; 96374; 99291; J0171; J2370